=== PATIENT | male | born 1945 | race Caucasian/White ===

== ENCOUNTER 2017-01-30 16:12 | Emergency (ER) | payer MEDICARE, OTHER ==
--- NOTE | 2017-01-30 16:16 | PDOC ---
Rapid Medical Evaluation Time Seen by Provider: 01/30/17 16:15 Medical Evaluation: Allergies Allergy/AdvReac Type Severity Reaction Status Date / Time No Known Allergies Allergy Verified 10/18/16 15:20 01/30/17 16:15 71 yo M presents c/o RUQ pain x2 days with heart burn. Denies cp, sob. 2015: Cholecystectomy
[2017-01-30 16:21] VITALS: BMI 23.6
[2017-01-30 16:54] LABS: BASOPHIL 0.5 % (0-2.0); EOSINOPHIL 1.1 % (0-4.5); MCH 28.3 pg (25.7-33.7); MCHC 32.9 g/dl (32.0-35.9); MEAN CELL VOLUME 86.1 fl (80-96); MEAN PLT VOLUME 9.2 fl (7.5-11.1); NEUTROPHILS 65.4 % (42.8-82.8); PLATELET COUNT 154 K/MM3 (134-434); RDW 14.4 % (11.9-15.9); WHITE BLOOD COUNT 9.1 K/mm3 (4.0-10.0)
[2017-01-30 17:25] LABS: ALBUMIN 4.1 g/dl (3.4-5.0); BILIRUBIN,DIRECT 0.1 mg/dL (0.0-0.2); BILIRUBIN,TOTAL 0.5 mg/dL (0.2-1.0); TOT PROT 6.8 g/dl (6.4-8.2)
[2017-01-30] MEDS ORDERED: PANTOPRAZOLE SODIUM 40 MG in SODIUM CHLORIDE 100 ML IVPB ONE (18:01)
--- NOTE | 2017-01-30 18:01 | PDOC ---
History of Present Illness - History of Present Illness Initial Comments: 01/30/17 18:16 The patient is a 71 year old male with significant past medical history of hypertension and cholecystectomy in 2015 who presents to the emergency department with abdominal pain for 1 week. The patient states his pain is localized to the RUQ and radiates to his chest at times. The pain has been constant and is described as a bloating sensation. He reports some black stool in the past. He has never seen a GI specialist but states he has been told that he has liver problems. The patient currently denies any associated nausea, vomiting, diarrhea. He denies any chest pain, shortness of breath, palpitations. The patient denies recent illness, fevers, or chills. He denies sick contacts and recent travels. <Jo-Ann Shin - Last Filed: 01/30/17 18:28> - General History Source: Patient Exam Limitations: No Limitations <Shahnaz Velez - Last Filed: 02/01/17 18:53> - General Chief Complaint: Pain Stated Complaint: PAIN Time Seen by Provider: 01/30/17 16:15 Past History <Jo-Ann Shin - Last Filed: 01/30/17 18:28> - Past Medical History Cardiac Disorders: Yes HTN: Yes Hypercholesterolemia: Yes - Surgical History Cholecystectomy: Yes - Immunization History Immunization Up to Date: Yes - Psycho/Social/Smoking Cessation Hx Anxiety: No Suicidal Ideation: No Smoking History: Never smoked Have you smoked in the past 12 months: No Information on smoking cessation initiated: No Hx Alcohol Use: No Drug/Substance Use Hx: No Substance Use Type: None <Shahnaz Velez - Last Filed: 02/01/17 18:53> - Past Medical History Allergies/Adverse Reactions: Allergies Allergy/AdvReac Type Severity Reaction Status Date / Time No Known Allergies Allergy Verified 01/30/17 16:17 Home Medications: Ambulatory Orders Carvedilol [Coreg -] 25 mg PO BID 10/18/16 Losartan Potassium [Cozaar] 25 mg PO BID 10/18/16 Review of Systems - Review of Systems Able to Perform ROS?: Yes Comments:: 01/30/17 18:16 GENERAL/CONSTITUTIONAL: No: fever, chills, weakness, loss of appetite. HEAD, EYES, EARS, NOSE AND THROAT: No: change in vision, ear pain, discharge, sore throat, throat swelling. CARDIOVASCULAR: No: chest pain, lightheadedness, palpitations, syncope RESPIRATORY: No: cough, shortness of breath, wheezing, hemoptysis, stridor. GASTROINTESTINAL: +RUQ pain. No: nausea, vomiting, abdominal cramping, diarrhea , rectal bleeding, constipation. GENITOURINARY: No: dysuria, hematuria, frequency, urgency, flank pain. MUSCULOSKELETAL: No: back pain, neck pain, joint pain, muscle swelling or pain SKIN AND BREASTS: No: lesions, pallor, rash or easy bruising. NEUROLOGIC: No: headache, vertigo, paresthesias, weakness ENDOCRINE: No: unexplained weight gain or loss HEMATOLOGIC/LYMPHATIC: No: anemia, easy bleeding, swelling nodes <Jo-Ann Shin - Last Filed: 01/30/17 18:28> *Physical Exam - Vital Signs Last Vital Signs Temp Pulse Resp BP Pulse Ox 98 F 75 18 133/74 98 01/30/17 16:13 01/30/17 16:13 01/30/17 16:13 01/30/17 16:13 01/30/17 16:13 - Physical Exam Comments: 01/30/17 18:16 GENERAL: The patient is in no acute distress. HEAD: Normal with no signs of trauma. EYES: PERRLA, EOMI, sclera anicteric, conjunctiva clear. ENT: Ears normal, nares patent, oropharynx clear without exudates. Moist mucous membranes. NECK: Normal range of motion, supple without lymphadenopathy, JVD, or masses. LUNGS: Breath sounds equal, clear to auscultation bilaterally. No wheezes, and no crackles. HEART: Regular rate and rhythm, normal S1 and S2 without murmur, rub or gallop. ABDOMEN: +Tenderness to palpation in the RUQ, no guarding, no rebound. Soft, normoactive bowel sounds. EXTREMITIES: Normal range of motion, no edema. No clubbing or cyanosis. No erythema, or tenderness. NEUROLOGICAL: Cranial nerves II through XII grossly intact. Normal speech. No focal neurological deficits. MUSCULOSKELETAL: Back non-tender to palpation, no CVA tenderness SKIN: Warm, Dry, normal turgor, no rashes or lesions noted. <Jo-Ann Shin - Last Filed: 01/30/17 18:28> - Vital Signs Last Vital Signs Temp Pulse Resp BP Pulse Ox 98 F 75 18 133/74 98 01/30/17 16:13 01/30/17 16:13 01/30/17 16:13 01/30/17 16:13 01/30/17 16:13 <Shahnaz Velez - Last Filed: 02/01/17 18:53> ED Treatment Course - LABORATORY CBC & Chemistry Diagram: 01/30/17 16:25 01/30/17 16:25 - ADDITIONAL ORDERS Additional order review: Laboratory Results 01/30/17 01/30/17 16:25 16:25 Total Bilirubin 0.5 D Direct Bilirubin 0.1 AST 38 H D ALT 84 H D Alkaline Phosphatase 84 D Total Protein 6.8 Albumin 4.1 Total Amylase 72 Lipase 137 01/30/17 16:25 RBC 5.63 H MCV 86.1 MCHC 32.9 RDW 14.4 D MPV 9.2 Neutrophils % 65.4 Lymphocytes % 23.4 Monocytes % 9.6 Eosinophils % 1.1 Basophils % 0.5 <Jo-Ann Shin - Last Filed: 01/30/17 18:28> - LABORATORY CBC & Chemistry Diagram: 01/30/17 16:25 01/30/17 16:25 - ADDITIONAL ORDERS Additional order review: Laboratory Results 01/30/17 01/30/17 16:25 16:25 Total Bilirubin 0.5 D Direct Bilirubin 0.1 AST 38 H D ALT 84 H D Alkaline Phosphatase 84 D Total Protein 6.8 Albumin 4.1 Total Amylase 72 Lipase 137 01/30/17 16:25 RBC 5.63 H MCV 86.1 MCHC 32.9 RDW 14.4 D MPV 9.2 Neutrophils % 65.4 Lymphocytes % 23.4 Monocytes % 9.6 Eosinophils % 1.1 Basophils % 0.5 - RADIOLOGY Radiology Studies Ordered: Category Date Time Status ABDOMEN & PELVIS CT WITH CONTR [CT] Stat CT Scan 01/30/17 18:00 Ordered <Shahnaz Velez - Last Filed: 02/01/17 18:53> Medical Decision Making - Medical Decision Making 01/30/17 18:00 A portion of this note was documented by scribe services under my direction. I have reviewed the details of the note, within reason, and agree with the documentation with the following case summary and management plan written by me. Nursing documentation reviewed and incorporated into medical decision making 01/30/17 18:21 This is a 71-year-old male presented to emergency department with right-sided abdominal pain. Patient describes his pain is burning states is located in the right side of his abdomen and radiates up to the center of the abdomen and then up to the chest. No associated shortness of breath or chest pain. Patient denies nausea, vomiting, diarrhea. Patient denies any fevers chills No abdominal wall trauma. Pt s/p Cholecystectomy 2014 Patient states he is previously told he has "liver problems" which he describes as a fatty liver He states he has never been seen by a specialist On examination: Patient has right-sided abdominal pain. No distention, no rebound, no guarding. Will distended clots. Will do CT of the abdomen and pelvis with by mouth and IV contrast Laboratory Tests 01/30/17 01/30/17 01/30/17 16:25 16:25 16:25 WBC 9.1 Hgb 15.9 Hct 48.5 Plt Count 154 AST 38 H D ALT 84 H D Total Amylase 72 Lipase 137 Pt signed out to Dr Patel pending CT <Shahnaz Velez - Last Filed: 02/01/17 18:53> *DC/Admit/Observation/Transfer - Attestations Scribe Attestion: 01/30/17 18:28 Documentation prepared by Jo-Ann Shin, acting as medical observer for Shahnaz Velez MD. <Jo-Ann Shin - Last Filed: 01/30/17 18:28> - Discharge Dispostion Admit: No <Shahnaz Velez - Last Filed: 02/01/17 18:53> Diagnosis at time of Disposition: Constipation Abdominal pain Qualifiers: Abdominal location: right upper quadrant Qualified Code(s): R10.11 - Right upper quadrant pain - Discharge Dispostion Disposition: HOME Condition at time of disposition: Stable - Referrals Referrals: Mayra Veliz [Primary Care Provider] - Arjun Rios MD [Staff Physician] - - Patient Instructions Printed Discharge Instructions: DI for Abdominal Pain-Adult Additional Instructions: Arjun Thank you for coming in to the ER Please Follow up with your primary care physician AND Dr Rios Return to the ER for any other concerns or complaints Purchase Miralax. Use as needed for positive results. Don't use daily. Print Language: BAHRAINI
[2017-01-30] MEDS ORDERED: PANTOPRAZOLE SODIUM 100 ML IVPB ONE (18:20)
[2017-01-30 18:21] LABS: CREATININE 0.7 mg/dL (0.7-1.3)
[2017-01-30 19:53] VITALS: BP 141/93; PULSE 68; TEMP 98.5
[2017-01-30] MEDS ORDERED: LACTULOSE 20 GM/30 ML UDC (FOR ORAL USE ONLY) PO ONE (22:08)
--- NOTE | 2017-01-30 22:08 | PDOC ---
*Physical Exam - Vital Signs Last Vital Signs Temp Pulse Resp BP Pulse Ox 98.5 F 68 18 141/93 96 01/30/17 19:52 01/30/17 19:52 01/30/17 19:52 01/30/17 19:52 01/30/17 19:52 ED Treatment Course - LABORATORY CBC & Chemistry Diagram: 01/30/17 16:25 01/30/17 16:25 - ADDITIONAL ORDERS Additional order review: Laboratory Results 01/30/17 01/30/17 01/30/17 19:10 16:25 16:25 Sodium 140 Potassium 4.6 Chloride 100 Carbon Dioxide 33 H Anion Gap 7 L BUN 9 D Creatinine 0.7 Random Glucose 105 Calcium 9.0 Total Bilirubin Direct Bilirubin AST ALT Alkaline Phosphatase Total Protein Albumin Total Amylase Lipase 137 Stool Occult Blood Negative 01/30/17 16:25 Sodium Potassium Chloride Carbon Dioxide Anion Gap BUN Creatinine Random Glucose Calcium Total Bilirubin 0.5 D Direct Bilirubin 0.1 AST 38 H D ALT 84 H D Alkaline Phosphatase 84 D Total Protein 6.8 Albumin 4.1 Total Amylase 72 Lipase Stool Occult Blood 01/30/17 16:25 RBC 5.63 H MCV 86.1 MCHC 32.9 RDW 14.4 D MPV 9.2 Neutrophils % 65.4 Lymphocytes % 23.4 Monocytes % 9.6 Eosinophils % 1.1 Basophils % 0.5 - Medications Given in the ED: ED Medications Discontinued Medications Generic Name Dose Route Start Last Admin Trade Name Freq PRN Reason Stop Dose Admin Pantoprazole Sodium 40 mg/ 100 mls @ 200 mls/hr 01/30/17 18:01 01/30/17 18:31 Sodium Chloride IVPB 01/30/17 18:30 200 mls/hr ONCE ONE Administration *DC/Admit/Observation/Transfer Diagnosis at time of Disposition: Abdominal pain Qualifiers: Abdominal location: right upper quadrant Qualified Code(s): R10.11 - Right upper quadrant pain Constipation Qualifiers: Constipation type: other constipation type Qualified Code(s): K59.09 - Other constipation - Discharge Dispostion Condition at time of disposition: Stable Admit: No - Referrals Referrals: Arjun Rios MD [Staff Physician] - Mayra Veliz [Primary Care Provider] - - Patient Instructions Printed Discharge Instructions: DI for Abdominal Pain-Adult Additional Instructions: Arjun Thank you for coming in to the ER Please Follow up with your primary care physician AND Dr Rios Return to the ER for any other concerns or complaints Purchase Miralax. Use as needed for positive results. Don't use daily. Print Language: [place] - Post Discharge Activity
[2017-01-30] MEDS ORDERED: LACTULOSE 20 GM/30 ML UDC (FOR ORAL USE ONLY) ONE (22:13)
== END 2017-01-30 22:19 | disposition home or self-care (01) ==
LOC: JER 16:12
PROC: 3E033GC Introduction of Other Therapeutic Substance into Peripheral Vein, Percutaneous Approach (ICD-10-PCS; principal; 2017-01-30)
DX: R10.11 Right upper quadrant pain (principal); I10 Essential (primary) hypertension; E78.5 Hyperlipidemia, unspecified
CPT/HCPCS: 36415; 74177-TC; 80048; 80076; 82150; 82272; 83690; 85025; 99283-25; Q9967

== ENCOUNTER 2017-05-18 08:28 | Emergency (ER) | payer MEDICARE ==
[2017-05-18 08:31] VITALS: BP 126/71; PULSE 70; TEMP 98.1; BMI 21.9
--- NOTE | 2017-05-18 09:14 | PDOC ---
History of Present Illness - General Chief Complaint: Sore Throat Stated Complaint: THROAT PAIN Time Seen by Provider: 05/18/17 08:40 History Source: Patient Exam Limitations: No Limitations - History of Present Illness Initial Comments: 05/18/17 10:25 Chief complaint: Right-sided throat discomfort with swallowing since last night after eating History of present illness: Patient is a 71-year-old male with a history of hypertension, hyperlipidemia, and benign prostatic hypertrophy here today complaining of right-sided throat discomfort with swallowing since last night after eating. Patient reports that this happens intermittently. Patient denies any difficulty swallowing or breathing. Patient ate tacos last night. Patient is not drooling. Patient does not have any fever denies being around anyone sick. Patient denies any recent travel. 05/18/17 13:49 05/18/17 13:50 Timing/Duration: intermittent Severity: mild Associated Symptoms: reports: other (or drooling or difficulty swallowing ). denies: shortness of breath Past History - Past Medical History Allergies/Adverse Reactions: Allergies Allergy/AdvReac Type Severity Reaction Status Date / Time No Known Allergies Allergy Verified 05/18/17 08:31 Home Medications: Ambulatory Orders Carvedilol [Coreg -] 25 mg PO BID 10/18/16 Losartan Potassium [Cozaar] 25 mg PO BID 10/18/16 Aspirin [ASA -] 81 mg PO DAILY 02/10/17 Tamsulosin HCl [Flomax] 0.4 mg PO DAILY 02/10/17 Mag Hydrox/Al Hydrox/Simeth [Mylanta Oral Suspension -] 30 ml PO Q6H PRN #0 Pantoprazole Sodium [Protonix -] 40 mg PO DAILY #14 tab 02/12/17 Rosuvastatin Calcium [Crestor] 10 mg PO DAILY #30 tablet 02/12/17 Cardiac Disorders: Yes HTN: Yes Hypercholesterolemia: Yes - Surgical History Cholecystectomy: Yes - Immunization History Immunization Up to Date: Yes - Psycho/Social/Smoking Cessation Hx Anxiety: No Suicidal Ideation: No Smoking History: Never smoked Have you smoked in the past 12 months: No Number of Cigarettes Smoked Daily: 0 Hx Alcohol Use: No Drug/Substance Use Hx: No Substance Use Type: None Review of Systems - Review of Systems Able to Perform ROS?: Yes Constitutional: No: Symptoms Reported HEENTM: Yes: Throat Pain (right sided ), Other (no drooling). No: Difficulty Swallowing Respiratory: No: Symptoms reported Cardiac (ROS): No: Symptoms Reported ABD/GI: No: Symptoms Reported Musculoskeletal: No: Symptoms Reported Integumentary: No: Symptoms Reported Neurological: No: Symptoms reported *Physical Exam - Vital Signs Last Vital Signs Temp Pulse Resp BP Pulse Ox 98.1 F 70 18 126/71 98 05/18/17 08:29 05/18/17 08:29 05/18/17 08:29 05/18/17 08:29 05/18/17 08:29 - Physical Exam General Appearance: Yes: Appropriately Dressed HEENT: positive: TMs Normal. negative: Pharyngeal Erythema, Tonsillar Exudate, Tonsillar Erythema, Nasal Congestion, Rhinorrhea, Sinus Tenderness, TM Bulging, TM Dull, TM Erythema, Excessive drooling Neck: negative: Tender, Decreased range of motion, Lymphadenopathy (R), Lymphadenopathy (L), Rigidity, Tender lateral, Tender midline, Thyromegaly Respiratory/Chest: positive: Lungs Clear, Normal Breath Sounds. negative: Chest Tender, Respiratory Distress Cardiovascular: positive: Regular Rhythm, Regular Rate, S1, S2 Integumentary: positive: Normal Color Neurologic: positive: Alert, Normal Response, Responsive ED Treatment Course - RADIOLOGY Radiology Studies Ordered: Category Date Time Status NECK SOFT TISSUE [RAD] Stat Radiology 05/18/17 09:11 Ordered Medical Decision Making - Medical Decision Making 05/18/17 10:27 Patient is a 71-year-old male with a history of hypertension, hyperlipidemia, and benign prostatic hypertrophy here today complaining of right-sided throat discomfort with swallowing since last night after eating. Patient reports that this happens intermittently. Patient denies any difficulty swallowing or breathing. Patient ate tacos last night. Patient is not drooling. Patient does not have any fever denies being around anyone sick. Patient denies any recent travel. R/o soft tissue abnormality throat PLAN: xray soft tissue throat follow up with ENT as soon as possible 05/18/17 13:50 05/18/17 13:50 *DC/Admit/Observation/Transfer Diagnosis at time of Disposition: Throat discomfort - Discharge Dispostion Disposition: HOME Condition at time of disposition: Stable - Referrals Referrals: Mayra Veliz [Primary Care Provider] - - Patient Instructions Additional Instructions: Return to emergency room if symptoms worsen any difficulty swallowing or breathing Follow up with ears, nose and throat Dr. River as soon as possible\ Avoid eating any crunchy foods patient voiced understanding of discharge instructions and all questions were answered Volver a la catalina de emergencias si los sntomas empeoran cualquier dificultad para tragar o respirar Seguimiento con las orejas, nariz y garganta Dr. River nathan pronto vania sea posible \ Evite comer cualquier comida crujiente El paciente expres la comprensin de las instrucciones de genie y todas las preguntas fueron contestadas
== END 2017-05-18 11:10 | disposition home or self-care (01) ==
LOC: JERFT 08:28
DX: R07.0 Pain in throat (principal); R13.19 Other dysphagia; I10 Essential (primary) hypertension; E78.00 Pure hypercholesterolemia, unspecified; N40.0 Benign prostatic hyperplasia without lower urinary tract symptoms
CPT/HCPCS: 70360-TC; 99281-25

== ENCOUNTER 2017-06-13 09:43 | Emergency (ER) | payer MEDICARE ==
[2017-06-13 09:47] VITALS: BMI 22.4
[2017-06-13] MEDS ORDERED: ACETAMINOPHEN/CAFFEINE/BUTALBITAL 1 TAB PO ONE (10:34)
--- NOTE | 2017-06-13 10:35 | PDOC ---
History of Present Illness - History of Present Illness Initial Comments: 06/13/17 10:54 The patient is a 72 year old male, new zealander speaking, with a significant past medical history of hypertension (25 mg, reduced from 50 mg), hyperlipidemia, enlarged prostate (on Flomax), who presents to the emergency department with intermittent dizziness for a month with new onset of right sided headache which radiates to his occipital region since yesterday. The patient denies dizziness at this time, however, he states he has been experiencing an intermittent, diffuse tightness to his head which he reports his associated with feeling hot all over. He states the headache is a 5/10 right at its worst. He reports taking tylenol this morning with slight alleviation of his headache. He also states that pressing on the right side of his head alleviates his headache. Secondarily, the patient adds he has gas and admits to frequently eating beans. He reports having an appointment with his PCP on Saturday. He denies chest pain, shortness of breath. He denies fever, chills, nausea, vomit, diarrhea and constipation. He denies dysuria, frequency, urgency and hematuria. Allergies: NKDA PCP - Dr. Chaim Gama <Mary Ann Vaughn - Last Filed: 06/13/17 11:33> <Shahnaz Velez - Last Filed: 06/14/17 19:23> - General Chief Complaint: Headache Stated Complaint: HEADACHE, BACK PAIN Time Seen by Provider: 06/13/17 09:50 Past History <Mary Ann Vaughn - Last Filed: 06/13/17 11:33> - Past Medical History Cardiac Disorders: Yes HTN: Yes Hypercholesterolemia: Yes - Surgical History Abdominal Surgery: Yes Cholecystectomy: Yes - Immunization History Immunization Up to Date: Yes - Psycho/Social/Smoking Cessation Hx Anxiety: No Suicidal Ideation: No Smoking History: Never smoked Have you smoked in the past 12 months: No Number of Cigarettes Smoked Daily: 0 Hx Alcohol Use: No Drug/Substance Use Hx: No Substance Use Type: None <Shahnaz Velez - Last Filed: 06/14/17 19:23> - Past Medical History Allergies/Adverse Reactions: Allergies Allergy/AdvReac Type Severity Reaction Status Date / Time No Known Allergies Allergy Verified 06/13/17 09:45 Home Medications: Ambulatory Orders Carvedilol [Coreg -] 25 mg PO BID 10/18/16 Losartan Potassium [Cozaar] 25 mg PO BID 10/18/16 Aspirin [ASA -] 81 mg PO DAILY 02/10/17 Tamsulosin HCl [Flomax] 0.4 mg PO DAILY 02/10/17 Mag Hydrox/Al Hydrox/Simeth [Mylanta Oral Suspension -] 30 ml PO Q6H PRN #0 Pantoprazole Sodium [Protonix -] 40 mg PO DAILY #14 tab 02/12/17 Rosuvastatin Calcium [Crestor] 10 mg PO DAILY #30 tablet 02/12/17 Lidocaine 5% Patch [Lidoderm Patch -] 1 patch TP DAILY PRN #30 patch 06/13/17 Review of Systems - Review of Systems Able to Perform ROS?: Yes Comments:: 06/13/17 10:54 CONSTITUTIONAL: Absent: fever, no chills, no fatigue EYES: Absent: visual changes ENT: Absent: ear pain, no sore throat CARDIOVASCULAR: Absent: chest pain, no palpitations RESPIRATORY: Absent: cough, no SOB GASTROINTESTINAL: Absent: abdominal pain, no nausea, no vomiting, no constipation, no diarrhea GENITOURINARY: Absent: dysuria, no frequency, no hematuria MUSCULOSKELETAL: Absent: back pain, no arthralgia, no myalgia SKIN: Absent: rash NEURO: (+) right sided headache <Mary Ann Vaughn - Last Filed: 06/13/17 11:33> *Physical Exam - Vital Signs Last Vital Signs Temp Pulse Resp BP Pulse Ox 98.1 F 88 18 145/86 98 06/13/17 09:44 06/13/17 09:44 06/13/17 09:44 06/13/17 09:44 06/13/17 09:44 - Physical Exam Comments: 06/13/17 10:55 GENERAL: The patient is in no acute distress. HEAD: Normal with no signs of trauma. EYES: PERRLA, EOMI, sclera anicteric, conjunctiva clear. ENT: Ears normal, nares patent, oropharynx clear without exudates. Moist mucous membranes. NECK: Normal range of motion, supple without lymphadenopathy, JVD, or masses. LUNGS: Breath sounds equal, clear to auscultation bilaterally. No wheezes, and no crackles. HEART:Regular rate and rhythm, normal S1 and S2 without murmur, rub or gallop. ABDOMEN: Soft, nontender, normoactive bowel sounds. No guarding, no rebound. No masses palpable. EXTREMITIES: Normal range of motion, no edema. No clubbing or cyanosis. No erythema, or tenderness. NEUROLOGICAL: Cranial nerves II through XII grossly intact. Normal speech. No focal neurological deficits. MUSCULOSKELETAL: Back non-tender to palpation, no CVA tenderness SKIN: Warm, Dry, normal turgor, no rashes or lesions noted. <Mary Ann Vaughn - Last Filed: 06/13/17 11:33> - Vital Signs Last Vital Signs Temp Pulse Resp BP Pulse Ox 98.1 F 88 18 145/86 98 06/13/17 09:44 06/13/17 09:44 06/13/17 09:44 06/13/17 09:44 06/13/17 09:44 <Shahnaz Velez - Last Filed: 06/14/17 19:23> ED Treatment Course - RADIOLOGY Radiograph Interpretation: 06/13/17 11:33 EXAM#: TYPE/EXAM: RESULT: [id number] CT/HEAD CT WITHOUT CONTRAST Right side pain CT scan of the brain without intravenous contrast. No prior is available for comparison. There is mild volume loss and ventricular dilatation. No mass lesion, focal acute infarct or intracranial hemorrhage is identified. There is no shift of the midline structures. The craniocervical junction appears unremarkable. Visualized paranasal sinuses and mastoid air cells are well aerated. The calvarium is intact. IMPRESSION: Mild volume loss and ventricular dilatation without evidence of acute intracranial pathology. Correlate clinically to determine further evaluation and follow-up. Reported By: Darcie Booth MD 06/13/17 1122 - Medications Given in the ED: ED Medications Discontinued Medications Generic Name Dose Route Start Last Admin Trade Name Freq PRN Reason Stop Dose Admin Acetaminophen/Butalbital/Caffeine 1 tablet 06/13/17 10:34 06/13/17 10:51 Fioricet - PO 06/13/17 10:35 1 tablet ONCE ONE Administration <Mary Ann Vaughn - Last Filed: 06/13/17 11:33> Medical Decision Making - Medical Decision Making A portion of this note was documented by scribe services under my direction. I have reviewed the details of the note, within reason, and agree with the documentation with the following case summary and management plan written by me. Nursing documentation reviewed and incorporated into medical decision making 06/13/17 10:48 This is a 72 yo M with a history of HTN, HLD, cardiac disease. Plan of headache. Patient states 2 years ago he had a fall, with head trauma. Since that time the patient has had intermittent tension-type headaches. Today he presents with a complaint of right-sided headache which radiates from the front of his head to the occipital region. No additional head trauma. No vision changes. No nausea, vomiting. No fevers or chills Patient states that yesterday when he had this headache he bumped his head and it improved. Today he again had this headache and took Tylenol which also improved his headache. At its worse headache is 5/10 Patient's has not seen his primary care physician although has an appointment in 4 days. Will do: Head CT give fiorecet for headache Will re assess 06/13/17 11:29 CT head negative for acute pathology will discharge to home Pt states he feels better I discussed the physical exam findings, ancillary test results and final diagnoses with the patient. I answered all of the patient's questions. The patient was satisfied with the care received and felt comfortable with the discharge plan and treatment plan. The patient will call their primary care physician within 24 hours to arrange follow-up and will return to the Emergency Department with any new, persistent or worsening symptoms. <Shahnaz Velez - Last Filed: 06/14/17 19:23> *DC/Admit/Observation/Transfer - Attestations Scribe Attestion: 06/13/17 10:56 Documentation prepared by Mary Ann Vaughn, acting as medical psychotherapist for Shahnaz Velez MD <Mary Ann Vaughn - Last Filed: 06/13/17 11:33> - Discharge Dispostion Admit: No <Shahnaz Velez - Last Filed: 06/14/17 19:23> Diagnosis at time of Disposition: Headache Qualifiers: Headache type: tension-type Headache chronicity pattern: episodic headache Intractability: not intractable Qualified Code(s): G44.219 - Episodic tension- type headache, not intractable - Discharge Dispostion Disposition: HOME Condition at time of disposition: Stable - Prescriptions Prescriptions: Lidocaine 5% Patch [Lidoderm Patch -] 1 patch TP DAILY PRN #30 patch PRN Reason: Pain - Referrals Referrals: Christine Gama MD [Primary Care Provider] - Jeevan Mcdermott MD [Staff Physician] - - Patient Instructions Printed Discharge Instructions: DI for Headache Additional Instructions: Talia por venir hoy al ER Lease seguimiento con manning mdico de atencin primaria vania ya est programado para el Por favor tome tylenol para manning dolor de shahla Si usted tiene un dolor de shahla ms deb, usted puede radha EXCEDRIN MIGRAINE Por favor regrese a la catalina de emergencias para cualquier otra preocupacin o queja Tambin puede intentar radha GAS X para manning gas Thank you for coming in to the ER today lease follow up with your primary care physician as is already scheduled for Saturday Please take tylenol for your headache If you have a more severe headache, you can take Excedrin Migraine Please return to the ER for any other concerns or complaints Also you can try taking Gas x for your gas Print Language: YORUBA
[2017-06-13] MEDS ORDERED: ACETAMINOPHEN/CAFFEINE/BUTALBITAL 1 TAB ONE (10:45)
[2017-06-13 11:44] VITALS: BP 140/90; PULSE 81; TEMP 98
== END 2017-06-13 11:47 | disposition home or self-care (01) ==
LOC: JER 09:43 → SUPCPDRO 09:43 → JER 11:47
DX: G44.219 Episodic tension-type headache, not intractable (principal); I10 Essential (primary) hypertension; E78.00 Pure hypercholesterolemia, unspecified; N40.0 Benign prostatic hyperplasia without lower urinary tract symptoms
CPT/HCPCS: 70450-TC; 99282-25

== ENCOUNTER 2018-02-26 16:43 | Observation (INO) | payer MEDICARE, OTHER ==
--- NOTE | 2018-02-26 16:59 | PDOC ---
Rapid Medical Evaluation Chief Complaint: Chest Pain Time Seen by Provider: 02/26/18 16:58 Medical Evaluation: Allergies Allergy/AdvReac Type Severity Reaction Status Date / Time No Known Allergies Allergy Verified 06/13/17 09:45 02/26/18 16:58 I have performed a brief in-person evaluation of this patient. The patient presents with a chief complaint of:chest pressure x several days. H/ o HTN, HLD, BPH Pertinent physical exam findings:stable w/ unremarkable exam I have ordered the following:labs/ekg/cxr The patient will proceed to the ED for further evaluation. Discharge Disposition - Diagnosis Chest pain Qualifiers: Chest pain type: unspecified Qualified Code(s): R07.9 - Chest pain, unspecified - Referrals - Patient Instructions - Post Discharge Activity
[2018-02-26 17:00] VITALS: BMI 21.9
[2018-02-26 17:24] LABS: BASO % 0.5 % (0-2.0); EOS % 1.5 % (0-4.5); HEMATOCRIT 43.1 % (35.4-49); HEMOGLOBIN 14.3 GM/dL (11.7-16.9); LYMPH % 27.2 % (8-40); MCH 28.3 pg (25.7-33.7); MCHC 33.1 g/dl (32.0-35.9); MEAN CELL VOLUME 85.4 fl (80-96); MEAN PLT VOLUME 9.1 fl (7.5-11.1); MONO % 11.4 % (3.8-10.2); NEUT % 59.4 % (42.8-82.8); PLATELET COUNT 152 K/MM3 (134-434); RBC 5.04 M/mm3 (4.00-5.60); RDW 15.2 % (11.9-15.9); WHITE BLOOD COUNT 7.2 K/mm3 (4.0-10.0)
--- NOTE | 2018-02-26 17:47 | PDOC ---
Attending Attestation - HPI HPI: 02/26/18 19:33 The patient is a 72 year old male, with a significant past medical history of CHF, HTN, HLD and GERD, who presents to the emergency department complaining of chest pain for the past 3 days. He describes his chest pain as ranging from mild to moderate, without radiation or modifying factors. No identifiable triggers or alleviators. Also endorses a pressure sensation in his throat. He notes that he has had nuclear stress tests in the past, most recent being 2 years ago. The patient denies shortness of breath, headache or dizziness. Denies fever, chills, nausea, vomiting, diarrhea and constipation. Allergies: None Past surgical history: None reported Social History: No alcohol, tobacco or drug use reported - Physicial Exam PE: 02/26/18 19:36 GENERAL: Awake, alert, and fully oriented, in no acute distress HEAD: No signs of trauma, normocephalic, atraumatic EYES: PERRLA, EOMI, sclera anicteric, conjunctiva clear ENT: Auricles normal inspection, hearing grossly normal, nares patent, oropharynx clear without exudates. Moist mucosa NECK: Normal ROM, supple, no lymphadenopathy, JVD, or masses LUNGS: No distress, speaks full sentences, clear to auscultation bilaterally HEART: Regular rate and rhythm, normal S1 and S2, no murmurs, rubs or gallops, peripheral pulses normal and equal bilaterally. ABDOMEN: Soft, nontender, normoactive bowel sounds. No guarding, no rebound. No masses EXTREMITIES : Normal inspection, Normal range of motion, no edema. No clubbing or cyanosis. NEUROLOGICAL: Cranial nerves II through XII grossly intact. Normal speech, normal gait, no focal sensorimotor deficits SKIN: Warm, Dry, normal turgor, no rashes or lesions noted <Tommy Ortiz - Last Filed: 02/26/18 19:33> - Resident Resident Name: Onofre Goncalves - ED Attending Attestation I have performed the following: I have examined & evaluated the patient, The case was reviewed & discussed with the resident, I agree w/resident's findings & plan, Exceptions are as noted - Medical Decision Making 02/26/18 17:47 I, Dr. Yany Kahn, DO, attest that this document has been prepared under my direction and personally reviewed by me in its entirety. I further attest, that it accurately reflects all work, treatment, procedures and medical decision -making performed by me. 02/26/18 19:45 a/p: 72yo male with cp that radiates to his neck and RUQ pain -feels a fullness sensation to neck -no pain at this time -cp comes and goes -no n/v/d -sometimes burning sensation -will check labs, ekg, trop, ruq u/s, cxr -will monitor and reassess 02/26/18 21:45 pt with heart score of 5 will keep for obs and ACS work up discussed with the patient - agreeable to stay for [facility] was supposed to have an echo yesterday - but forgot about the appt discussed with Sailaja from [facility] - accept pt to service under Dr. Avitia <Yany Kahn - Last Filed: 02/26/18 21:51> Discharge Disposition <Tommy Ortiz - Last Filed: 02/26/18 19:33> - Discharge Dispostion Admit: Yes <Yany Kahn - Last Filed: 02/26/18 21:51> - Diagnosis Abdominal pain Chest pain Qualifiers: Chest pain type: unspecified Qualified Code(s): R07.9 - Chest pain, unspecified - Discharge Dispostion Condition at time of disposition: Fair - Referrals Referrals: Mayra Veliz [Primary Care Provider] - - Patient Instructions - Post Discharge Activity Heart Score/ECG Review - ECG Intrepretation Comment:: 02/26/18 21:50 sinus dionisio at 59, LBBB, no changes from prior, no acute st/t wave findings <Yany Kahn - Last Filed: 02/26/18 21:51>
[2018-02-26 17:51] LABS: ANION GAP 3 (8-16); BILIRUBIN,TOTAL 0.4 mg/dL (0.2-1.0); BLOOD UREA NITROGEN 10 mg/dL (7-18); CALCIUM 8.7 mg/dL (8.5-10.1); CHLORIDE 104 mmol/L (98-107); CO2 32 mmol/L (21-32); CREATININE 0.7 mg/dL (0.7-1.3); GLUCOSE,RANDOM 92 mg/dL (74-106); POTASSIUM 4.5 mmol/L (3.5-5.1); SGOT/AST 19 U/L (15-37); SGPT/ALT 34 U/L (12-78); SODIUM 139 mmol/L (136-145)
[2018-02-26 17:54] LABS: ALK PHOS 86 U/L (45-117)
--- NOTE | 2018-02-26 18:55 | PDOC ---
History of Present Illness - General Chief Complaint: Chest Pain Stated Complaint: CHEST PAIN Time Seen by Provider: 02/26/18 16:58 - History of Present Illness Initial Comments: 02/26/18 18:49 72 yo M with h/o HTN, HLD, and GERD who p/w chest pain. Patient reports episodic , retrosternal chest pressure over the past 3 days. No identifiable triggers or alleviators. No asx. diaphoresis, hemoptysis, cough, wheezing, palpitations, radiation, weakness, sensory changes. Also endorses globus sensation in throat with no identifiable triggers or alleviators. Denies N/V, F/ C, dysphagia, postprandial pain, constipation, diarrhea, BPR, lightheadedness, weakness, sensory changes. Reports h/o normal endoscopy. Denies h/o CAD/PR, stent placement, CABG, or abnormal stress test. Does not recall results from most recent stress test 2 years ago. Denies tobacco use. Past History - Past Medical History Allergies/Adverse Reactions: Allergies Allergy/AdvReac Type Severity Reaction Status Date / Time No Known Allergies Allergy Verified 02/26/18 17:00 Home Medications: Ambulatory Orders Carvedilol [Coreg -] 25 mg PO BID 10/18/16 Losartan Potassium [Cozaar] 25 mg PO BID 10/18/16 Aspirin [ASA -] 81 mg PO DAILY 02/10/17 Tamsulosin HCl [Flomax] 0.4 mg PO DAILY 02/10/17 Mag Hydrox/Al Hydrox/Simeth [Mylanta Oral Suspension -] 30 ml PO Q6H PRN #0 Pantoprazole Sodium [Protonix -] 40 mg PO DAILY #14 tab 02/12/17 Rosuvastatin Calcium [Crestor] 10 mg PO DAILY #30 tablet 02/12/17 Lidocaine 5% Patch [Lidoderm Patch -] 1 patch TP DAILY PRN #30 patch 06/13/17 Cardiac Disorders: Yes COPD: No HTN: Yes Hypercholesterolemia: Yes - Surgical History Abdominal Surgery: Yes Cholecystectomy: Yes - Immunization History Immunization Up to Date: Yes - Suicide/Smoking/Psychosocial Hx Smoking History: Never smoked Have you smoked in the past 12 months: No Number of Cigarettes Smoked Daily: 0 Information on smoking cessation initiated: No Hx Alcohol Use: No Drug/Substance Use Hx: No Substance Use Type: None Review of Systems - Review of Systems Comments:: 02/26/18 19:33 GENERAL/CONSTITUTIONAL: No fever or chills. No weakness. HEAD, EYES, EARS, NOSE AND THROAT: No change in vision. No ear pain or discharge. No sore throat. CARDIOVASCULAR: + Chest pain. No shortness of breath RESPIRATORY: No cough, wheezing, or hemoptysis. GASTROINTESTINAL: No nausea, vomiting, diarrhea or constipation. GENITOURINARY: No dysuria, frequency, or change in urination. MUSCULOSKELETAL: No joint or muscle swelling or pain. No neck or back pain. SKIN: No rash NEUROLOGIC: No headache, vertigo, loss of consciousness, or change in strength/ sensation. ENDOCRINE: No increased thirst. No abnormal weight change HEMATOLOGIC/LYMPHATIC: No anemia, easy bleeding, or history of blood clots. ALLERGIC/IMMUNOLOGIC: No hives or skin allergy. *Physical Exam - Vital Signs Last Vital Signs Temp Pulse Resp BP Pulse Ox 98.1 F 69 18 110/74 98 02/26/18 16:58 02/26/18 16:58 02/26/18 16:58 02/26/18 16:58 02/26/18 16:58 - Physical Exam Comments: 02/26/18 20:18 GENERAL: Awake, alert, and fully oriented, in no acute distress HEAD: No signs of trauma, normocephalic, atraumatic EYES: PERRLA, EOMI, sclera anicteric, conjunctiva clear ENT: Hearing grossly normal, nares patent, oropharynx clear without exudates. Moist mucosa NECK: Normal ROM, supple, no lymphadenopathy, JVD, or masses LUNGS: No distress, speaks full sentences, clear to auscultation bilaterally HEART: Regular rate and rhythm, normal S1 and S2, no murmurs, rubs or gallops, peripheral pulses normal and equal bilaterally. ABDOMEN: Soft, epigastric and RUQ ttp, normoactive bowel sounds. No guarding, no rebound. No masses. Neg CVA ttp. EXTREMITIES : Normal inspection, Normal range of motion, no edema. No clubbing or cyanosis. SKIN: Warm, Dry, normal turgor, no rashes or lesions noted ED Treatment Course - LABORATORY CBC & Chemistry Diagram: 02/26/18 17:10 02/26/18 17:10 - ADDITIONAL ORDERS Additional order review: Laboratory Results 02/26/18 02/26/1802/26/18 17:10 17:10 17:10 WBC 7.2 RBC 5.04 Hgb 14.3 Hct 43.1 MCV 85.4 MCH 28.3 MCHC 33.1 RDW 15.2 Plt Count 152 D MPV 9.1 Neutrophils % 59.4 Lymphocytes % 27.2 D Monocytes % 11.4 H Eosinophils % 1.5 Basophils % 0.5 Sodium 139 Potassium 4.5 Chloride 104 Carbon Dioxide 32 Anion Gap 3 L BUN 10 Creatinine 0.7 Creat Clearance w eGFR > 60 Random Glucose 92 Calcium 8.7 Total Bilirubin 0.4 AST 19 ALT 34 Alkaline Phosphatase 86 D Creatine Kinase 83 Troponin I < 0.02 B-Natriuretic Peptide 166.43 H Total Protein 7.0 Albumin 4.0 02/26/18 17:10 RBC 5.04 MCV 85.4 MCHC 33.1 RDW 15.2 MPV 9.1 Neutrophils % 59.4 Lymphocytes % 27.2 D Monocytes % 11.4 H Eosinophils % 1.5 Basophils % 0.5 - RADIOLOGY Radiology Studies Ordered: Category Date Time Status GALLBLADDER US [US] Stat Ultrasound 02/26/18 18:49 Ordered Medical Decision Making - Medical Decision Making 02/26/18 19:57 72 yo M with h/o HTN, HLD, and GERD who p/w episodic, retrosternal chest pressure over the past 3 days.+ Globus sensation in throat. Denies N/V, F/C, diaphoresis, hemoptysis, cough, wheezing, palpitations, radiation, weakness, sensory changes, dysphagia, postprandial pain, constipation, diarrhea, BPR, lightheadedness, weakness, sensory changes. Denies h/o CAD/PR, stent placement , CABG, or abnormal stress test. HDS. Physical exam with epigastric and RUQ ttp. Will evaluate for ACS/PR, PNA. Low suspicion of aortic dissection. Absent neuro deficits, and patient currently hemodynamically stable. Low risk PE based on Weils criteria. Differential also includes esophagitis, gastritis, cholelithiasis. 02/26/18 20:00 ED Course: CBC, CMP, Cardiac RUQ U/S, CXR Maloox, ASA 02/26/18 20:05 02/26/18 20:05 CBC, CMP: Unremarkable BNP: 163 Trop: Neg 02/26/18 20:22 EKG: LBBB, sinus bradycardia. Normal interval duration. Absent acute ST segment changes. Similar to prior interval study (02/10/17) *DC/Admit/Observation/Transfer Diagnosis at time of Disposition: Chest pain Qualifiers: Chest pain type: unspecified Qualified Code(s): R07.9 - Chest pain, unspecified - Referrals Referrals: Mayra Veliz [Primary Care Provider] - - Patient Instructions - Post Discharge Activity
[2018-02-26] MEDS ORDERED: ASPIRIN 81 MG CHEWABLE TABLETS PO ONE (19:35)
[2018-02-26] MEDS ORDERED: MAG HYDROX/AL HYDROX/SIMETH -MYLANTA- ORAL SUSPENSION PO ONE (19:35)
[2018-02-26] MEDS ORDERED: ASPIRIN 81 MG CHEWABLE TABLETS ONE (19:51)
[2018-02-26] MEDS ORDERED: MAG HYDROX/AL HYDROX/SIMETH 30 ML UNIT-DOSE CUP ONE (19:52)
--- NOTE | 2018-02-26 22:19 | HP ---
CHIEF COMPLAINT: chest pain PCP: [facility] HISTORY OF PRESENT ILLNESS: This is a 72 year old male with a past medical history significant for CHF, HTN , HLD, GERD who presented to the ED with a 3 day history of intermittent chest pain that radiates to his neck and throat. Upon exam pt is sitting up in chair eating dinner, no acute complaints. Pt tolerated dinner without issue. ER course was notable for: (1) trop neg x 1, BNP 166 (2) ECG with no acute findings, LBBB, old (3) Recent Travel: pt denies PAST MEDICAL HISTORY: CHF, HTN, HLD, GERD, BPH PAST SURGICAL HISTORY: Cholecystectomy Social History: Smoking: pt denies Alcohol: in past Drugs: pt denies Family History: father age 97, h/o prostate problems mother age 84, old age brother s/p CVA age 76 3 other siblings no medical problems Allergies No Known Allergies Allergy (Verified 02/26/18 17:00) HOME MEDICATIONS: 3 Medication Instructions Recorded Carvedilol [Coreg -] 25 mg PO BID 10/18/16 Losartan Potassium [Cozaar] 25 mg PO BID 10/18/16 Aspirin [ASA -] 81 mg PO DAILY 02/10/17 Tamsulosin HCl [Flomax] 0.4 mg PO DAILY 02/10/17 Mag Hydrox/Al Hydrox/Simeth 30 ml PO Q6H PRN #0 02/12/17 [Mylanta Oral Suspension -] Pantoprazole Sodium [Protonix -] 40 mg PO DAILY #14 tab 02/12/17 Rosuvastatin Calcium [Crestor] 10 mg PO DAILY #30 tablet 02/12/17 Lidocaine 5% Patch [Lidoderm Patch 1 patch TP DAILY PRN #30 patch 06/13/17 -] REVIEW OF SYSTEMS CONSTITUTIONAL: Absent: fever, chills, diaphoresis, generalized weakness, malaise, loss of appetite, weight change HEENT: Absent: rhinorrhea, nasal congestion, throat pain, throat swelling, difficulty swallowing, mouth swelling, ear pain, eye pain, visual changes CARDIOVASCULAR: Present: chest pain Absent: syncope, palpitations, irregular heart rate, lightheadedness, peripheral edema RESPIRATORY: Absent: cough, shortness of breath, dyspnea with exertion, orthopnea, wheezing, stridor, hemoptysis GASTROINTESTINAL: Absent: abdominal pain, abdominal distension, nausea, vomiting, diarrhea, constipation, melena, hematochezia GENITOURINARY: Absent: dysuria, frequency, urgency, hesitancy, hematuria, flank pain, genital pain MUSCULOSKELETAL: Absent: myalgia, arthralgia, joint swelling, back pain, neck pain SKIN: Absent: rash, itching, pallor HEMATOLOGIC/IMMUNOLOGIC: Absent: easy bleeding, easy bruising, lymphadenopathy, frequent infections ENDOCRINE: Absent: unexplained weight gain, unexplained weight loss, heat intolerance, cold intolerance NEUROLOGIC: Absent: headache, focal weakness or paresthesias, dizziness, unsteady gait, seizure, mental status changes, bladder or bowel incontinence PSYCHIATRIC: Absent: anxiety, depression, suicidal or homicidal ideation, hallucinations. PHYSICAL EXAMINATION Vital Signs - 24 hr 3 02/26/18 16:58 Temperature 98.1 F Pulse Rate 69 Respiratory 18 Rate Blood Pressure 110/74 O2 Sat by Pulse 98 Oximetry (%) GENERAL: Awake, alert, and fully oriented, in no acute distress. HEAD: Normal with no signs of trauma. EYES: Pupils equal, round and reactive to light, extraocular movements intact, sclera anicteric, conjunctiva clear. No lid lag. EARS, NOSE, THROAT: Ears normal, nares patent, oropharynx clear without exudates. Moist mucous membranes. NECK: Normal range of motion, supple without lymphadenopathy, JVD, or masses. LUNGS: Breath sounds equal, clear to auscultation bilaterally. No wheezes, and no crackles. No accessory muscle use. HEART: Regular rate and rhythm, normal S1 and S2 without murmur, rub or gallop. ABDOMEN: Soft, nontender, not distended, normoactive bowel sounds, no guarding, no rebound, no masses. No hepatomegaly or splenomegaly. MUSCULOSKELETAL: Normal range of motion at all joints. No bony deformities or tenderness. No CVA tenderness. UPPER EXTREMITIES: 2+ pulses, warm, well-perfused. No cyanosis. No clubbing. No peripheral edema. LOWER EXTREMITIES: 2+ pulses, warm, well-perfused. No calf tenderness. No peripheral edema. NEUROLOGICAL: Cranial nerves II-XII intact. Normal speech. Normal gait. PSYCHIATRIC: Cooperative. Good eye contact. Appropriate mood and affect. SKIN: Warm, dry, normal turgor, no rashes or lesions noted, normal capillary refill. Laboratory Results - last 24 hr 3 0302/26/18 02/26/18 17:10 17:10 17:10 WBC 7.2 RBC 5.04 Hgb 14.3 Hct 43.1 MCV 85.4 MCH 28.3 MCHC 33.1 RDW 15.2 Plt Count 152 D MPV 9.1 Neutrophils % 59.4 Lymphocytes % 27.2 D Monocytes % 11.4 H Eosinophils % 1.5 Basophils % 0.5 Sodium 139 Potassium 4.5 Chloride 104 Carbon Dioxide 32 Anion Gap 3 L BUN 10 Creatinine 0.7 Creat Clearance w eGFR > 60 Random Glucose 92 Calcium 8.7 Total Bilirubin 0.4 AST 19 ALT 34 Alkaline Phosphatase 86 D Creatine Kinase 83 Troponin I < 0.02 B-Natriuretic Peptide 166.43 H Total Protein 7.0 Albumin 4.0 ECG Sinus bradycardia vent rate 59, QTC 429 LBBB, unchanged from prior ECG Radiology Reports US abdomen, limited IMPRESSION: 1. Status post cholecystectomy. No evidence of intrahepatic or extrahepatic biliary ductal dilatation. 2. Pancreas obstructive by bowel gas and cannot be evaluated. 3. A 2.6 x 2.4 cm left hepatic lobe cyst. Reported By: Karma Colon DO 02/26/182033 CXR, portable IMPRESSION: No focal opacity to suggest pneumonia. No evidence of pulmonary vascular congestion or pleural effusion. Bilateral lower lung pulmonary nodular opacities measuring up to 1.1 cm, not definitely present on prior chest x-rays. Further evaluation with nonemergent outpatient noncontrast chest CT recommended. Reported By: Karma Colon DO 02/26/182037 ASSESSMENT/PLAN: 72yM with PMH, CHF, HTN, HLD, GERD, BPH presented to the ED with 3 day h/o intermittent chest pain with some throat pressure. Chest pain - heart score 5 - admit for observation - trend troponin - echo - cardiology consult CHF/HTN/HLD - cont home meds GERD - Cont protonix BPH - cont home flomax DVT PPX - heparin deferred as anticipated LOS <48h FEN - tolerating po - bmp in am - low sodium diet as tolerated Dispo: Pt to be admitted to observation status. Visit type - Emergency Visit Emergency Visit: Yes ED Registration Date: 02/26/18 Care time: The patient presented to the Emergency Department on the above date and was hospitalized for further evaluation of their emergent condition. - New Patient This patient is new to me today: Yes Date on this admission: 02/26/18 - Critical Care Critical Care patient: No Hospitalist Screening - Colonoscopy Questionnaire Colonoscopy Questionnaire: Colonoscopy Questionnaire - Patient: 50 - 75 years old and never had a screening colonoscopy: No History of colon or rectal polyps, or CA: No History of IBD, Crohn's disease or UC: No History of abdominal radiation therapy as a child: No - Relative: 1 with colon or rectal CA, or polyps at age 60 or younger: No Colon or rectal CA diagnosed at age 45 or younger: No Multiple relatives with colon or rectal CA: No - Outcome: Screening Result: Negative Screen
[2018-02-27] MEDS ORDERED: TAMSULOSIN HCL 0.4 MG CAP.ER.24H (FP) PO SCH (08:30)
[2018-02-27 08:42] LABS: BASO % 0.6 % (0-2.0); EOS % 1.9 % (0-4.5); HEMATOCRIT 41.5 % (35.4-49); HEMOGLOBIN 13.8 GM/dL (11.7-16.9); LYMPH % 26.5 % (8-40); MCH 28.4 pg (25.7-33.7); MCHC 33.2 g/dl (32.0-35.9); MEAN CELL VOLUME 85.5 fl (80-96); MEAN PLT VOLUME 9.2 fl (7.5-11.1); MONO % 10.5 % (3.8-10.2); NEUT % 60.5 % (42.8-82.8); PLATELET COUNT 138 K/MM3 (134-434); RBC 4.85 M/mm3 (4.00-5.60); RDW 14.8 % (11.9-15.9); WHITE BLOOD COUNT 6.9 K/mm3 (4.0-10.0)
[2018-02-27 09:10] LABS: ANION GAP 9 (8-16); BLOOD UREA NITROGEN 11 mg/dL (7-18); CALCIUM 8.8 mg/dL (8.5-10.1); CHLORIDE 103 mmol/L (98-107); CO2 29 mmol/L (21-32); CREATININE 0.6 mg/dL (0.7-1.3); GLUCOSE,RANDOM 95 mg/dL (74-106); MAGNESIUM 2.5 mg/dL (1.8-2.4); POTASSIUM 4.4 mmol/L (3.5-5.1); SODIUM 141 mmol/L (136-145)
[2018-02-27] MEDS ORDERED: CARVEDILOL 25 MG TABLET (FP) PO SCH (10:00)
[2018-02-27] MEDS ORDERED: PANTOPRAZOLE 40 MG TABLET (FP) PO SCH (10:00)
[2018-02-27] MEDS ORDERED: LOSARTAN POTASSIUM 25 MG TABLET PO SCH (10:00)
[2018-02-27] MEDS ORDERED: ASPIRIN 81 MG CHEWABLE TABLETS PO SCH (10:00)
[2018-02-27] MEDS ORDERED: ROSUVASTATIN CA 10 MG TABLET (FP) PO SCH (10:00)
--- NOTE | 2018-02-27 10:04 | PN ---
Progress Note, Physician Chief Complaint: Chest pain History of Present Illness: Review of chart and medical records, labs, CXR, EKG- likely 2/2 to acid reflux. No chest pain at this time. Cardiology to see pt to clear - Current Medication List Current Medications: Active Medications Aspirin (Asa -) 81 mg PO DAILY FLEX Carvedilol (Coreg -) 25 mg PO BID FLEX Losartan Potassium (Cozaar -) 25 mg PO BID FLEX Pantoprazole Sodium (Protonix -) 40 mg PO DAILY FLEX Rosuvastatin Calcium (Crestor -) 10 mg PO DAILY FLEX Tamsulosin HCl (Flomax -) 0.4 mg PO DAILY@0830 [facility] Last Admin: 02/27/18 08:42 Dose: 0.4 mg - Objective Vital Signs: Vital Signs Temperature 97.7 F 02/27/18 06:52 Pulse Rate 72 02/27/18 06:52 Respiratory Rate 14 02/27/18 06:52 Blood Pressure 120/78 02/27/18 06:52 O2 Sat by Pulse Oximetry (%) 98 02/27/18 06:52 Constitutional: Yes: Well Nourished, No Distress, Calm Labs: CBC, BMP 02/27/18 07:50 02/27/18 07:50 Problem List - Problems (1) Chest pain Assessment/Plan: -Trop negative -Cardiology consult Code(s): R07.9 - CHEST PAIN, UNSPECIFIED Qualifiers: Chest pain type: unspecified Qualified Code(s): R07.9 - Chest pain, unspecified Assessment/Plan see problem list
[2018-02-27 10:32] VITALS: BP 129/71; PULSE 73; TEMP 98.3
--- NOTE | 2018-02-27 11:37 | EKG ---
Test Reason : Blood Pressure : / mmHG Vent. Rate : 064 BPM Atrial Rate : 064 BPM P-R Int : 154 ms QRS Dur : 132 ms QT Int : 442 ms P-R-T Axes : 049 -11 234 degrees QTc Int : 455 ms SINUS RHYTHM WITH OCCASIONAL PREMATURE VENTRICULAR COMPLEXES LEFT BUNDLE BRANCH BLOCK ABNORMAL ECG WHEN COMPARED WITH ECG OF 26-FEB-2018 17:18, PREMATURE VENTRICULAR COMPLEXES ARE NOW PRESENT Confirmed by KATHERIN WEBBER, WENDI ([id number]) on 02/27/2018 11:37:20 AM Referred By: Confirmed By:WENDI PANDEY MD
--- NOTE | 2018-02-27 11:40 | EKG ---
Test Reason : Blood Pressure : / mmHG Vent. Rate : 059 BPM Atrial Rate : 059 BPM P-R Int : 150 ms QRS Dur : 132 ms QT Int : 434 ms P-R-T Axes : 041 -23 235 degrees QTc Int : 429 ms SINUS BRADYCARDIA LEFT BUNDLE BRANCH BLOCK ABNORMAL ECG WHEN COMPARED WITH ECG OF 10-FEB-2017 09:33, QUESTIONABLE CHANGE IN QRS AXIS Confirmed by WENDI PANDEY MD ([id number]) on 02/27/2018 11:40:01 AM Referred By: Confirmed By:WENDI PANDEY MD
== END 2018-02-27 13:23 | disposition left against medical advice (07) ==
LOC: JER 16:43 → JERBED 21:46 → UNDOADMOB 21:46 → JERBED 21:47
PROVIDERS: ADMIT Internal Medicine; ATTEND Family Medicine
DX: R07.9 Chest pain, unspecified (principal); I10 Essential (primary) hypertension; I50.9 Heart failure, unspecified; E78.5 Hyperlipidemia, unspecified; N40.0 Benign prostatic hyperplasia without lower urinary tract symptoms; K21.9 Gastro-esophageal reflux disease without esophagitis; Z79.82 Long term (current) use of aspirin
CPT/HCPCS: 36415; 71046-TC-FY; 76705-TC; 80048; 80053; 82550; 83735; 83880; 84100; 84484; 85025; 93005; 93010; 93306-TC; 99285-25; G0378

== ENCOUNTER 2018-10-27 06:37 | Emergency (ER) | payer OTHER ==
[2018-10-27 06:58] VITALS: BMI 26.4
--- NOTE | 2018-10-27 07:29 | PDOC ---
History of Present Illness - General Chief Complaint: Pain Stated Complaint: ABD PAIN Time Seen by Provider: 10/27/18 07:29 - History of Present Illness Initial Comments: 10/27/18 08:44 The patient is a 73 year old [place]er speaking male with a PMH of HTN, dyslipidemia, BPH, GERD, R sided lung mass, s/p thoracotomy in 07/19, that presented today complaining of LLQ abdominal pain that started overnight. The pain is constant, no aggravating/alleviating factors, no radiation, 9/10 in severity, no change in bowel habits, last BM was this morning, normal, no dysuria, no history of kidney stones in the past. The patient also reports pain in his right testicle, radiating to his right groin intermittently. It is present for a month. He went to his Urologist Dr Bateman, had endoscopy and was prescribed antibiotics, doesn't recall the name. He hasn't noticed improvement after finishing full course. He is sexually active, not compliant with protection. The patient denies fever, chills, nausea, vomiting, hematuria, melena, no penile discharge, skin rash. PCP: Dr Stewart from [facility] 10/27/18 08:52 Past History - Past Medical History Allergies/Adverse Reactions: Allergies Allergy/AdvReac Type Severity Reaction Status Date / Time No Known Allergies Allergy Verified 10/27/18 06:58 Home Medications: Ambulatory Orders Carvedilol [Coreg -] 25 mg PO BID 10/18/16 Losartan Potassium [Cozaar] 25 mg PO BID 10/18/16 Aspirin [ASA -] 81 mg PO DAILY 02/10/17 Tamsulosin HCl [Flomax] 0.4 mg PO DAILY 02/10/17 Atorvastatin Calcium [Lipitor] 10 mg PO DAILY 05/28/18 Guaifenesin AC [Robitussin AC -] 5 ml PO TID PRN #1 bottle MDD 15ml 07/24/18 Cardiac Disorders: Yes CVA: No COPD: No DVT: No HTN: Yes Hypercholesterolemia: Yes - Surgical History Abdominal Surgery: Yes Cholecystectomy: Yes - Immunization History Immunization Up to Date: Yes - Suicide/Smoking/Psychosocial Hx Smoking History: Never smoked Have you smoked in the past 12 months: No Number of Cigarettes Smoked Daily: 0 Information on smoking cessation initiated: No Hx Alcohol Use: No Drug/Substance Use Hx: No Substance Use Type: None Review of Systems - Review of Systems Able to Perform ROS?: Yes Comments:: 10/27/18 08:52 [place] Speaking Is the patient limited Italian proficient: Yes Constitutional: No: Symptoms Reported HEENTM: No: Symptoms Reported Respiratory: No: Symptoms reported Cardiac (ROS): No: Symptoms Reported ABD/GI: Yes: Symptoms Reported, See HPI. No: Nausea, Vomiting : Yes: Symptoms Reported, See HPI, Testicular Pain Musculoskeletal: No: Symptoms Reported Neurological: No: Symptoms reported *Physical Exam - Vital Signs Last Vital Signs Temp Pulse Resp BP Pulse Ox 98.0 F 89 19 124/74 98 10/27/18 06:38 10/27/18 06:38 10/27/18 06:38 10/27/18 06:38 10/27/18 06:38 - Physical Exam General Appearance: Yes: Nourished, Appropriately Dressed. No: Apparent Distress HEENT: positive: EOMI, MARION Respiratory/Chest: positive: Lungs Clear, Normal Breath Sounds. negative: Accessory Muscle Use Cardiovascular: positive: Regular Rhythm, Regular Rate, S1, S2. negative: Edema , Murmur Gastrointestinal/Abdominal: positive: Normal Bowel Sounds, Tender (LLQ), Soft, Guarding (LLQ), Tenderness. negative: Organomegaly, Pulsatile Mass, Hernia Male Genitalia: positive: normal genitalia, testicular tenderness (on right side ). negative: discharge, testicular mass, epididymus tender Musculoskeletal: positive: Normal Inspection. negative: CVA Tenderness Neurologic: positive: Fully Oriented, Alert, Motor Strength 5/5 ED Treatment Course - LABORATORY CBC & Chemistry Diagram: 10/27/18 08:48 10/27/18 08:48 Medical Decision Making - Medical Decision Making 10/27/18 08:56 The patient is a 73 year old male that presented with LLQ abdominal pain and right testicular pain. Differential diagnosis is broad, includes; diverticulitis , hernia, colitis, prostatitis, STD, colon mass, renal colic, UTI. We ordered CBC with diff, CMP, UA, u culture, GC and chlamydia, testicular US. We also ordered CT abdomen with IV contrast. He was given Tylenol for pain and NS. 10/27/18 11:43 Scrotal US with right epididymal cyst, bilateral hydrocele and varicocele, no torsion. Waiting for CT abdomen official report. CBC, CMP, UA normal, GC and chlamydia pending. 10/27/18 12:01 CT abdomen shows diverticulitis. The patient will be given 10 day course of Ciprofloxacin and Flagyl. DC home, f/u with PCP. *DC/Admit/Observation/Transfer Diagnosis at time of Disposition: Diverticulitis - Discharge Dispostion Condition at time of disposition: Fair Decision to Admit order: No - Referrals Referrals: Mayra Veliz [Primary Care Provider] - 7 days - Patient Instructions Printed Discharge Instructions: Diverticulitis Additional Instructions: The pain that you came to the hospital was caused by diverticulitis: inflection in your bowels. It was visible on CT of your abdomen. We recommend that you will take antibiotics (Ciprofloxacin and Flagyl) for 10 days as prescribed. We also noticed cyst in your right testicle. Please see your primary care physician within 5-7 days and urologist in a week or two. If you have severe abdominal pain, bleeding, fever, chills, or worsening of any of your symptoms, come back to emergency room as soon as possible. - Post Discharge Activity
--- NOTE | 2018-10-27 08:06 | PDOC ---
Attending Attestation - HPI HPI: 10/27/18 12:02 The patient is a 73 year old Maltese speaking male with a significant past medical history of HTN, dyslipidemia, BPH, GERD, R sided lung mass, s/p thoracotomy in 07/19, who presents today complaining of LLQ abdominal pain that started overnight. He reports the pain is constant without aggravating/ alleviating factors or radiation The pain is reported as 9/10 in severity. The patient also reports pain in his right testicle, radiating to his right groin intermittently for about a month. He went to his Urologist Dr Bateman, had endoscopy and was prescribed antibiotics, doesn't recall the name. He hasn't noticed improvement after finishing full course. He is sexually active, not compliant with protection. The patient denies fever, chills, nausea, vomiting, hematuria, melena, no penile discharge, skin rash. PCP: Dr Stewart from [facility] - Physicial Exam PE: 10/27/18 12:01 Vitals: Triage vital signs reviewed General Appearance: No acute distress, well nourished, well developed Head: Atraumatic Eyes: Pupils equal reactive round, extraocular movement intact Neck: Supple; No nuchal rigidity Chest Wall: Nontender Cardiac: Regular rate and rhythm, no murmurs, no rubs, no gallops Lungs: Clear to auscultation bilateral, good air movement bilaterally Abdomen: (+) LLQ tenderness to palpation. Soft, nondistended, normal bowel sounds, Extremities: Full range of motion to all extremities, no cyanosis, clubbing, or edema Skin: Warm and dry, no rashes or lesions, no rash, no petechiae Neuro: AOX3; Cranial Nerves 2-12 grossly intact, Strength intact to all extremities, Sensation intact to all extremities, gait normal Psych: Normal mood, normal affect - Medical Decision Making 10/27/18 12:02 Documentation prepared by Mary Ann Vaughn, acting as medical practice manager for Mendel Munoz MD <Mary Ann Vaughn - Last Filed: 10/27/18 12:02> - Resident Resident Name: Jodie Dunne - ED Attending Attestation I have performed the following: I have examined & evaluated the patient, The case was reviewed & discussed with the resident, I agree w/resident's findings & plan, Exceptions are as noted - HPI HPI: 10/27/18 08:05 73 years old past medical significant for hypertension hyperlipidemia BPH GERD - Medical Decision Making 73 years old with hypertension dyslipidemia BPH GERD right-sided lung mass presents with moderate to severe left lower quadrant pain started overnight. No fever no chills no nausea no vomiting diarrhea also complaining of chronic right testicle pain has been followed by urology for this CT shows acute diverticulitis ultrasound of the testicle shows a small cyst but no other acute findings patient was advised to follow-up with his urologist. Regarding his acute diverticulitis he was prescribed Cipro and Flagyl he has no fever he has no white count he is well-appearing his tolerating fluids by mouth Findings, the need for follow-up and strict return instructions discussed patient. <Mendel Munoz - Last Filed: 10/27/18 15:16>
[2018-10-27] MEDS ORDERED: SODIUM CHLORIDE 0.9% 1000 ML INFUS.BAG IV ONE (08:07)
[2018-10-27] MEDS ORDERED: ACETAMINOPHEN 1000 MG/100 ML VIAL (NON FORMULARY) IVPB ONE (08:07)
[2018-10-27] MEDS ORDERED: ACETAMINOPHEN INJECTION 100 ML IVPB ONE (08:38)
[2018-10-27 08:59] LABS: BASO % 0.9 % (0-2.0); EOS % 1.6 % (0-4.5); HEMOGLOBIN 14.5 GM/dL (11.7-16.9); LYMPH % 15.8 % (8-40); MCH 26.2 pg (25.7-33.7); MCHC 32.1 g/dl (32.0-35.9); MEAN CELL VOLUME 81.7 fl (80-96); MEAN PLT VOLUME 8.7 fl (7.5-11.1); MONO % 8.6 % (3.8-10.2); NEUT % 73.1 % (42.8-82.8); PLATELET COUNT 168 K/MM3 (134-434); RBC 5.51 M/mm3 (4.00-5.60); RDW 15.1 % (11.9-15.9); WHITE BLOOD COUNT 8.7 K/mm3 (4.0-10.0)
[2018-10-27 09:18] LABS: URINE APPEARANCE CLEAR; URINE BILIRUBIN NEGATIVE (<2.0 mg/dL); URINE COLOR YELLOW; URINE GLUCOSE (UA) NEGATIVE (NEGATIVE); URINE KETONE NEGATIVE (NEGATIVE); URINE LEUK ESTERASE NEGATIVE (NEGATIVE); URINE NITRITE NEGATIVE (NEGATIVE); URINE PROTEIN NEGATIVE (NEGATIVE); URINE UROBILINOGEN NEGATIVE mg/dL (0.2-1.0)
[2018-10-27 09:48] LABS: ALBUMIN 3.7 g/dl (3.4-5.0); ALK PHOS 85 U/L (45-117); ANION GAP 6 MMOL/L (8-16); BILIRUBIN,TOTAL 0.4 mg/dL (0.2-1); BLOOD UREA NITROGEN 18 mg/dL (7-18); CALCIUM 8.9 mg/dL (8.5-10.1); CHLORIDE 101 mmol/L (98-107); CO2 31 mmol/L (21-32); CREATININE 0.7 mg/dL (0.55-1.3); GLUCOSE,RANDOM 113 mg/dL (74-106); LIPASE 99 U/L (73-393); POTASSIUM 4.6 mmol/L (3.5-5.1); SGOT/AST 24 U/L (15-37); SGPT/ALT 33 U/L (13-61); SODIUM 137 mmol/L (136-145)
[2018-10-27] MEDS ORDERED: dilTIAZem HCL 50 MG/10 ML - 10 ML VIAL IVPUSH ONE (11:14)
[2018-10-27 12:48] VITALS: BP 128/78; PULSE 74; TEMP 98.4
== END 2018-10-27 13:01 | disposition home or self-care (01) ==
LOC: JER 06:37
PROC: 3E033NZ Introduction of Analgesics, Hypnotics, Sedatives into Peripheral Vein, Percutaneous Approach (ICD-10-PCS; principal; 2018-10-27)
DX: K57.92 Diverticulitis of intestine, part unspecified, without perforation or abscess without bleeding (principal); N50.3 Cyst of epididymis; N43.2 Other hydrocele; I86.1 Scrotal varices; I10 Essential (primary) hypertension; E78.5 Hyperlipidemia, unspecified; N40.0 Benign prostatic hyperplasia without lower urinary tract symptoms; K21.9 Gastro-esophageal reflux disease without esophagitis; Z90.2 Acquired absence of lung [part of]
CPT/HCPCS: 36415; 74177-TC; 76870-TC; 80053; 81003; 83690; 85025; 87491; 87591; 96374; 99283-25; J0131; J7030; Q9967

== ENCOUNTER 2019-03-05 18:15 | Emergency (ER) | payer OTHER ==
[2019-03-05 18:34] VITALS: TEMP 98.3; BMI 23.3
[2019-03-05] MEDS ORDERED: SODIUM CHLORIDE 1,000 ML IV STA (19:54)
[2019-03-05] MEDS ORDERED: ACETAMINOPHEN 1000 MG/100 ML VIAL (NON FORMULARY) IVPB ONE (19:54)
--- NOTE | 2019-03-05 19:56 | PDOC ---
History of Present Illness - General Chief Complaint: Pain, Acute Stated Complaint: PAIN Time Seen by Provider: 03/05/19 19:16 History Source: Patient Exam Limitations: Language Barrier ([employer] #[id number]) - History of Present Illness Travel History: No Initial Comments: 03/05/19 19:51 HISTORY OF PRESENT ILLNESS: This 73-year-old male with past medical history of lung cancer status post resection, hypertension, prostatitis, BPH, cholecystectomy, diverticulitis, hyperlipidemia who presents emergency department for evaluation of lower abdominal suprapubic pain. Patient reports the pain is been present for approximately one week and he has seen his urologist was put him on antibiotics for prostatitis. Patient is concerned as he continues to have pain and is requesting a reevaluation. Patient denies any dysuria, hematuria, urinary frequency, urinary hesitancy or difficulty with micturition. No recent travel or sick contacts. PAST MEDICAL HISTORY: see HPI SURGICAL HISTORY: see HPI ALLERGIES: No known drug allergies REVIEW OF SYSTEMS General/Constitutional: Denies fever or chills. Denies weakness, weight change. HEENT: Denies change in vision. Denies ear pain or discharge. Denies sore throat. Cardiovascular: Denies chest pain or shortness of breath. Respiratory: Denies cough, wheezing, or hemoptysis. Gastrointestinal: see HPI Genitourinary: see HPI Musculoskeletal: Denies joint or muscle swelling or pain. Denies neck or back pain. Skin and breasts: Denies rash or easy bruising. Neurologic: Denies headache, vertigo, loss of consciousness, or loss of sensation. Psychiatric: Denies depression or anxiety. Endocrine: Denies increased thirst. Denies abnormal weight change. Hematologic/Lymphatic: Denies anemia, easy bleeding, or history of blood clots. Allergic/Immunologic: Denies hives or skin allergy. Denies latex allergy. PHYSICAL EXAM General Appearance: Well-appearing, appropriately dressed. No apparent distress , no intoxication. HEENT: EOMI, PERRLA, normal ENT inspection, normal voice, TMs normal, pharynx normal. No conjunctival pallor. No photophobia, scleral icterus. Neck: Supple. Trachea midline. No tenderness, rigidity, carotid bruit, stridor , lymphadenopathy, or thyromegaly. Respiratory/Chest: Lungs CTAB. No shortness of breath, chest tenderness, respiratory distress, accessory muscle use. No crackles, rales, rhonchi, stridor , wheezing, dullness Cardiovascular: RRR. S1, S2. No JVD, murmur, bradycardia, tachycardia. Vascular Pulses: Dorsalis-Pedis (R): 2+, Dorsalis-Pedis (L): 2+ Gastrointestinal/Abdominal: Normal bowel sounds. Abdomen soft, non-distended. Diffuse lower abdominal tenderness without rebound tenderness. - Psoas/ obturator signs. No organomegaly, pulsatile mass, guarding, hernia, hepatomegaly , splenomegaly. No perineal tenderness. Lymphatic: No adenopathy, tenderness. Musculoskeletal/Extremities: Normal inspection. FROM of all extremities, normal capillary refill. Pelvis Stable. No CVA tenderness. No tenderness to extremities, pedal edema, swelling, erythema or deformity. Integumentary: Appropriate color, dry, warm. No cyanosis, erythema, jaundice or rash Neurologic: cellophane bath mixer II-XII intact. Fully oriented, alert. Appropriate mood/affect. Motor strength 5/5. No appreciable EOM palsy, facial droop or sensory deficit. Past History - Past Medical History Allergies/Adverse Reactions: Allergies Allergy/AdvReac Type Severity Reaction Status Date / Time No Known Allergies Allergy Verified 10/27/18 06:58 Home Medications: Ambulatory Orders Carvedilol [Coreg -] 25 mg PO BID 10/18/16 Losartan Potassium [Cozaar] 25 mg PO BID 10/18/16 Aspirin [ASA -] 81 mg PO DAILY 02/10/17 Tamsulosin HCl [Flomax] 0.4 mg PO DAILY 02/10/17 Atorvastatin Calcium [Lipitor] 10 mg PO DAILY 05/28/18 Guaifenesin AC [Robitussin AC -] 5 ml PO TID PRN #1 bottle MDD 15ml 07/24/18 Ciprofloxacin HCl [Cipro] 500 mg PO BID 10 Days #20 tablet 10/27/18 Metronidazole [Flagyl] 500 mg PO Q8H 10 Days #30 capsule 10/27/18 Cardiac Disorders: Yes CVA: No COPD: No DVT: No HTN: Yes Hypercholesterolemia: Yes Lung CA: Yes - Surgical History Abdominal Surgery: Yes Cholecystectomy: Yes - Immunization History Immunization Up to Date: Yes - Suicide/Smoking/Psychosocial Hx Smoking History: Former smoker Have you smoked in the past 12 months: No Number of Cigarettes Smoked Daily: 0 Information on smoking cessation initiated: No Hx Alcohol Use: No Drug/Substance Use Hx: No Substance Use Type: None *Physical Exam - Vital Signs Last Vital Signs Temp Pulse Resp BP Pulse Ox 98.3 F 73 16 141/82 97 03/05/19 18:30 03/05/19 18:30 03/05/19 18:30 03/05/19 18:30 03/05/19 18:30 ED Treatment Course - LABORATORY CBC & Chemistry Diagram: 03/05/19 20:04 03/05/19 20:04 Medical Decision Making - Medical Decision Making 03/05/19 19:55 A/P: 73-year-old male with lower abdominal pain for one week Differential diagnosis includes but not limited to prostatitis, diverticulitis, metastatic disease, obstruction, perforation, appendicitis, cystitis Basic labs Urinalysis, urine culture CTAP with IV contrast Normal saline 1 L bolus Tylenol 1 g IV now Reassess 03/05/19 22:55 Laboratory testing is unremarkable. Urinalysis is unremarkable. EKG sinus rhythm with frequent PVCs noted. Rate of 81. Left bundle-branch block is noted is unchanged from EKG done 07/24/18. CT of the abdomen and pelvis as read by Dr. Morales: No definite CT findings of acute pathology or visualized. Colonic diverticulosis is seen without evidence of current diverticulitis. Interval resolution of acute sigmoid diverticulitis is seen in comparison to his CT of 10/27/18. A small at least partially loculated right pleural effusion is noted without obvious interval change in comparison to a chest CT exam of 01/09/18. This finding appears decreased in size in comparison to the 10/27/18 CT study. As on the prior exams the right hepatic lobe laterally demonstrates several small areas of minimal to mild indentation which may represent subcapsular fluid accumulation. No obvious interval changes noted. Correlation with 3 month follow-up contrast enhanced CT or MRI suggested to document continued stability was otherwise clinically indicated. Small stable hepatic cysts. Status post cholecystectomy. 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 I discussed the physical exam findings, ancillary test results and final diagnoses with the patient. I answered all of the patient's questions. The patient was satisfied with the care received and felt comfortable with the discharge plan and treatment plan. The patient will call their primary care physician within 24 hours to arrange follow-up and will return to the Emergency Department with any new, persistent or worsening symptoms. *DC/Admit/Observation/Transfer Diagnosis at time of Disposition: Abdominal pain Qualifiers: Abdominal location: lower abdomen, unspecified Qualified Code(s): R10.30 - Lower abdominal pain, unspecified - Discharge Dispostion Disposition: HOME Condition at time of disposition: Fair Decision to Admit order: No - Referrals - Patient Instructions Additional Instructions: Continue your current antibiotics. Follow-up with Dr. Rios for continued evaluation of your liver and GI upset. Follow-up with Dr. Haely for reevaluation of your prostate. Return to the emergency department for any new or worsening symptoms. Thank you very much for choosing us to provide emergent health care needs. Contina con tus antibiticos actuales. Fazal un seguimiento con el Dr. Rios para alycia evaluacin continua de manning hgado y malestar gastrointestinal. Fazal un seguimiento con el Dr. Haley para reevaluar manning prstata. Regrese al departamento de emergencias para cualquier sntoma nuevo o que empeore. Muchas mikki por elegirnos para proporcionar necesidades de atencin mdica de emergencia. - Post Discharge Activity
[2019-03-05] MEDS ORDERED: ACETAMINOPHEN INJECTION 100 ML IVPB ONE (20:13)
[2019-03-05 20:37] LABS: BASO % 0.9 % (0-2.0); EOS % 1.2 % (0-4.5); HEMATOCRIT 45.8 % (35.4-49); HEMOGLOBIN 14.8 GM/dL (11.7-16.9); LYMPH % 19.2 % (8-40); MCH 28.1 pg (25.7-33.7); MCHC 32.4 g/dl (32.0-35.9); MEAN CELL VOLUME 86.8 fl (80-96); MEAN PLT VOLUME 9.4 fl (7.5-11.1); MONO % 7.9 % (3.8-10.2); NEUT % 70.8 % (42.8-82.8); PLATELET COUNT 155 K/MM3 (134-434); RBC 5.27 M/mm3 (4.00-5.60); RDW 14.9 % (11.9-15.9); WHITE BLOOD COUNT 10.1 K/mm3 (4.0-10.0)
[2019-03-05 21:14] LABS: ALBUMIN 3.8 g/dl (3.4-5.0); ALK PHOS 67 U/L (45-117); BILIRUBIN,TOTAL 0.2 mg/dL (0.2-1); BLOOD UREA NITROGEN 9 mg/dL (7-18); CALCIUM 9.1 mg/dL (8.5-10.1); CHLORIDE 104 mmol/L (98-107); CO2 29 mmol/L (21-32); CREATININE 0.7 mg/dL (0.55-1.3); GLUCOSE,RANDOM 124 mg/dL (74-106); LIPASE 149 U/L (73-393); POTASSIUM 4.4 mmol/L (3.5-5.1); SGOT/AST 30 U/L (15-37); SGPT/ALT 39 U/L (13-61); SODIUM 139 mmol/L (136-145); TOT PROT 7.1 g/dl (6.4-8.2)
[2019-03-05 21:31] LABS: ANION GAP 7 MMOL/L (8-16)
[2019-03-05 22:06] LABS: PH,URINE 5.5 (5.0-8.0); URINE APPEARANCE CLEAR; URINE BILIRUBIN NEGATIVE (NEGATIVE); URINE COLOR YELLOW; URINE GLUCOSE (UA) NEGATIVE (NEGATIVE); URINE KETONE NEGATIVE (NEGATIVE); URINE LEUK ESTERASE NEGATIVE (NEGATIVE); URINE NITRITE NEGATIVE (NEGATIVE); URINE PROTEIN NEGATIVE (NEGATIVE); URINE UROBILINOGEN 0.2 mg/dL (0.2-1.0)
[2019-03-05 22:58] VITALS: BP 124/67; PULSE 81
--- NOTE | 2019-03-05 23:38 | PDOC ---
*Physical Exam - Vital Signs Last Vital Signs Temp Pulse Resp BP Pulse Ox 98.3 F 81 18 124/67 97 03/05/19 18:30 03/05/19 22:57 03/05/19 22:57 03/05/19 22:57 03/05/19 22:57 ED Treatment Course - LABORATORY CBC & Chemistry Diagram: 03/05/19 20:04 03/05/19 20:04 - ADDITIONAL ORDERS Additional order review: Laboratory Results 03/05/19 03/05/19 22:01 20:04 Sodium 139 Potassium 4.4 Chloride 104 Carbon Dioxide 29 Anion Gap 7 L BUN 9 Creatinine 0.7 Creat Clearance w eGFR 110.55 Random Glucose 124 H Calcium 9.1 Total Bilirubin 0.2 AST 30 ALT 39 Alkaline Phosphatase 67 Total Protein 7.1 Albumin 3.8 Lipase 149 Urine Color Yellow Urine Appearance Clear Urine pH 5.5 Ur Specific [place] 1.041 H Urine Protein Negative Urine Glucose (UA) Negative Urine Ketones Negative Urine Blood Negative Urine Nitrite Negative Urine Bilirubin Negative Urine Urobilinogen 0.2 Ur Leukocyte Esterase Negative 03/05/19 20:04 RBC 5.27 MCV 86.8 MCHC 32.4 RDW 14.9 MPV 9.4 Neutrophils % 70.8 Lymphocytes % 19.2 D Monocytes % 7.9 Eosinophils % 1.2 Basophils % 0.9 - Medications Given in the ED: ED Medications Discontinued Medications Generic Name Dose Route Start Last Admin Trade Name Mattq PRN Reason Stop Dose Admin Acetaminophen 1,000 mg 03/05/19 19:54 03/05/19 20:31 Ofirmev Injection - IVPB 03/05/19 19:55 1,000 mg ONCE ONE Administration Sodium Chloride 1,000 mls @ 1,000 mls/hr 03/05/19 19:54 03/05/19 20:31 Normal Saline - IV 03/05/19 20:53 1,000 mls/hr ASDIR STA Administration Medical Decision Making - Medical Decision Making 03/05/19 23:38 Case discussed with BARAK Dominguez Agree with assessment and plan *DC/Admit/Observation/Transfer Diagnosis at time of Disposition: Abdominal pain Qualifiers: Abdominal location: lower abdomen, unspecified Qualified Code(s): R10.30 - Lower abdominal pain, unspecified - Discharge Dispostion Disposition: HOME Condition at time of disposition: Fair - Referrals - Patient Instructions Additional Instructions: Continue your current antibiotics. Follow-up with Dr. Rios for continued evaluation of your liver and GI upset. Follow-up with Dr. Haley for reevaluation of your prostate. Return to the emergency department for any new or worsening symptoms. Thank you very much for choosing us to provide emergent health care needs. Contina con tus antibiticos actuales. Fazal un seguimiento con el Dr. Rios para alycia evaluacin continua de manning hgado y malestar gastrointestinal. Fazal un seguimiento con el Dr. Haley para reevaluar manning prstata. Regrese al departamento de emergencias para cualquier sntoma nuevo o que empeore. Muchas mikki por elegirnos para proporcionar necesidades de atencin mdica de emergencia. - Post Discharge Activity
--- NOTE | 2019-03-06 12:23 | EKG ---
Test Reason : Blood Pressure : / mmHG Vent. Rate : 081 BPM Atrial Rate : 081 BPM P-R Int : 148 ms QRS Dur : 132 ms QT Int : 408 ms P-R-T Axes : 054 016 161 degrees QTc Int : 473 ms SINUS RHYTHM WITH FREQUENT and consecutive PREMATURE VENTRICULAR COMPLEXES LEFT BUNDLE BRANCH BLOCK ABNORMAL ECG WHEN COMPARED WITH ECG OF 24-JUL-2018 11:08, T WAVE INVERSION MORE EVIDENT IN LATERAL LEADS Confirmed by KRYSTIAN WEBBER, ERICKSON ([id number]) on 03/06/2019 12:23:18 PM Referred By: Confirmed By:ERICKSON BOLAND MD
== END 2019-03-05 23:03 | disposition home or self-care (01) ==
LOC: JER 18:15
PROC: 3E033NZ Introduction of Analgesics, Hypnotics, Sedatives into Peripheral Vein, Percutaneous Approach (ICD-10-PCS; principal; 2019-03-05)
DX: N40.1 Benign prostatic hyperplasia with lower urinary tract symptoms (principal); N41.8 Other inflammatory diseases of prostate; I10 Essential (primary) hypertension; E78.5 Hyperlipidemia, unspecified; K57.90 Diverticulosis of intestine, part unspecified, without perforation or abscess without bleeding; Z85.118 Personal history of other malignant neoplasm of bronchus and lung
CPT/HCPCS: 36415; 74177-TC; 80053; 81003; 83690; 85025; 93005; 93010; 99283-25; J0131; J7030

== ENCOUNTER 2019-04-05 08:13 | Emergency (ER) | payer OTHER ==
[2019-04-05 08:21] VITALS: TEMP 97.8; BMI 24.1
[2019-04-05] MEDS ORDERED: ASPIRIN 81 MG CHEWABLE TABLETS PO ONE (08:46)
--- NOTE | 2019-04-05 08:57 | PDOC ---
Attending Attestation - Resident Resident Name: AlainaAbby - ED Attending Attestation I have performed the following: I have examined & evaluated the patient, The case was reviewed & discussed with the resident, I agree w/resident's findings & plan, Exceptions are as noted - HPI HPI: 73 yo M history lung CA (s/p resection), HTN, HL, CHF, BPH presents with episode of weakness this morning associated with pressure sensation in the upper chest. He states that he thought his blood pressure was high so he took his medication. It subsequently resolved, however, he was concerned, so he sought evaluation. Asymptomatic at present. - Physicial Exam PE: GENERAL: Awake, alert, and fully oriented, in no acute distress HEAD: No signs of trauma EYES: PERRLA, EOMI, sclera anicteric, conjunctiva clear ENT: Auricles normal inspection, hearing grossly normal, nares patent, oropharynx clear without exudates. Moist mucosa NECK: Normal ROM, supple, no lymphadenopathy, JVD, or masses LUNGS: Breath sounds equal, clear to auscultation bilaterally. No wheezes, and no crackles HEART: Regular rate and rhythm, normal S1 and S2, no murmurs, rubs or gallops ABDOMEN: Soft, nontender, normoactive bowel sounds. No guarding, no rebound. No masses EXTREMITIES: Normal range of motion, no edema. No clubbing or cyanosis. No cords, erythema, or tenderness NEUROLOGICAL: Cranial nerves II through XII grossly intact. Normal speech, normal gait. Motor and sensation intact SKIN: Warm, Dry, normal turgor, no rashes or lesions noted. +Well-healed incisions to R chest wall. - Medical Decision Making Pt with multiple cardiac risk factors, although symptoms are somewhat atypical for ACS. However, he also has risk factors for PE, will obtain CTA.
[2019-04-05] MEDS ORDERED: ASPIRIN 81 MG CHEWABLE TABLETS ONE (09:09)
--- NOTE | 2019-04-05 09:10 | PDOC ---
History of Present Illness - General Chief Complaint: Chest Pain Stated Complaint: CHEST PAIN Time Seen by Provider: 04/05/19 08:22 History Source: Patient Exam Limitations: Language Barrier - History of Present Illness Initial Comments: 04/05/19 09:01 Pt is a 73yo M with PMH of Lung Ca s/p R Upper Lobectomy 07/2018, CHF, HTN, HLD, BPH presenting to ED for chest pain. Pt states that he went for his morning walk today at around 7am and started to feel a pressure in his chest associated with shortness of breath. He also states that he felt weak to the point that he thought he might fall. He went home and took his bp meds. He states it helped a little but he felt concerned. States he still feels some pressure in the upper chest/neck. He has not had pain with exertion in the past. He denies numbness/ tingling, cough,fevers, chills, hemoptysis, recent travel, weight gain, SOB with rest, n/v/d, abdominal pain, headaches, changes in vision, syncope. PMD: Darren Cards: PMH; see hpi PSH: see hpi Meds: see med rec Allergies: nkda Past History - Past Medical History Allergies/Adverse Reactions: Allergies Allergy/AdvReac Type Severity Reaction Status Date / Time No Known Allergies Allergy Verified 04/05/19 08:21 Home Medications: Ambulatory Orders Carvedilol [Coreg -] 25 mg PO BID 10/18/16 Losartan Potassium [Cozaar] 25 mg PO BID 10/18/16 Aspirin [ASA -] 81 mg PO DAILY 02/10/17 Tamsulosin HCl [Flomax] 0.4 mg PO DAILY 02/10/17 Atorvastatin Calcium [Lipitor] 10 mg PO DAILY 05/28/18 Guaifenesin AC [Robitussin AC -] 5 ml PO TID PRN #1 bottle MDD 15ml 07/24/18 Ciprofloxacin HCl [Cipro] 500 mg PO BID 10 Days #20 tablet 10/27/18 Metronidazole [Flagyl] 500 mg PO Q8H 10 Days #30 capsule 10/27/18 Cancer: Yes (lung) Cardiac Disorders: Yes CVA: No COPD: No DVT: No Diabetes: Yes HTN: Yes Hypercholesterolemia: Yes Seizures: Yes Lung CA: Yes - Surgical History Abdominal Surgery: Yes Cholecystectomy: Yes Lung Surgery: Yes - Immunization History Immunization Up to Date: Yes - Suicide/Smoking/Psychosocial Hx Smoking History: Never smoked Have you smoked in the past 12 months: No Number of Cigarettes Smoked Daily: 0 Hx Alcohol Use: No Drug/Substance Use Hx: No Substance Use Type: None Review of Systems - Review of Systems Constitutional: No: Chills, Fever, Weakness HEENTM: No: Symptoms Reported Respiratory: Yes: See HPI, SOB with Exertion. No: Cough, Productive cough Cardiac (ROS): Yes: Chest Tightness. No: Lightheadedness, Palpitations, Syncope ABD/GI: No: Constipated, Diarrhea, Nausea, Vomiting, Abdominal cramping : No: Burning, Dysuria Musculoskeletal: No: Back Pain, Joint Pain, Muscle Pain, Neck Pain Integumentary: No: Symptoms Reported Neurological: No: Headache, Numbness, Tingling *Physical Exam - Vital Signs Last Vital Signs Temp Pulse Resp BP Pulse Ox 97.8 F 68 18 122/66 98 04/05/19 08:18 04/05/19 10:54 04/05/19 10:54 04/05/19 10:54 04/05/19 10:54 - Physical Exam General Appearance: Yes: Nourished, Appropriately Dressed. No: Apparent Distress HEENT: positive: EOMI, [place], Normal ENT Inspection Neck: positive: Trachea midline, Supple Respiratory/Chest: positive: Lungs Clear, Normal Breath Sounds Cardiovascular: positive: Regular Rhythm, Regular Rate, S1, S2. negative: Edema , JVD, Murmur Vascular Pulses: Carotid (R): 2+, Carotid (L): 2+, Dorsalis-Pedis (R): 2+, Doralis-Pedis (L): 2+ Gastrointestinal/Abdominal: positive: Normal Bowel Sounds, Soft. negative: Tender Musculoskeletal: negative: CVA Tenderness Extremity: positive: Normal Capillary Refill. negative: Swelling, Calf Tenderness Integumentary: positive: Normal Color, Dry, Warm, Other (surgical scar on R thorax) Neurologic: positive: thin film technician II-XII NML intact, Fully Oriented, Alert, Normal Mood/ Affect, Normal Response, Motor Strength 5/5 Heart Score/ECG Review - History History: Slightly suspicious - Electrocardiogram EKG: Normal - Age Age: >/= 65 - Risk Factors Risk Factors Heart Score: Yes Hx Hypercholesterolemia, Yes Hx Hypertension Based on the list above the patient has:: 1-2 risk factors - Troponin Troponin: </= normal limit - Score Heart Score - Total: 3 ED Treatment Course - LABORATORY CBC & Chemistry Diagram: 04/05/19 08:55 04/05/19 08:55 - ADDITIONAL ORDERS Additional order review: Laboratory Results 04/05/19 04/05/19 04/05/19 11:00 08:55 08:55 Sodium 138 Potassium 4.0 Chloride 103 Carbon Dioxide 28 Anion Gap 7 L BUN 15 Creatinine 0.8 Creat Clearance w eGFR 94.76 Random Glucose 136 H Calcium 8.4 L Magnesium 2.3 Total Bilirubin 0.5 AST 27 ALT 32 Alkaline Phosphatase 63 Creatine Kinase 143 Troponin I < 0.02 < 0.02 Total Protein 6.5 Albumin 3.7 04/05/19 08:55 RBC 5.31 MCV 84.9 MCHC 32.7 RDW 15.2 MPV 9.0 Neutrophils % 74.1 Lymphocytes % 16.1 Monocytes % 8.4 Eosinophils % 0.9 Basophils % 0.5 - RADIOLOGY Radiology Studies Ordered: Category Date Time Status CHEST CTA [CT] Stat CT Scan 04/05/19 08:46 Completed CHEST PA & LAT [RAD] Stat Radiology 04/05/19 08:25 Completed - Medications Given in the ED: ED Medications Discontinued Medications Generic Name Dose Route Start Last Admin Trade Name Mattq PRN Reason Stop Dose Admin Aspirin 162 mg 04/05/19 08:46 04/05/19 09:00 Asa - PO 04/05/19 08:47 162 mg ONCE ONE Administration Medical Decision Making - Medical Decision Making 04/05/19 09:05 Pt is a 73yo M with PMH of Lung Ca s/p thoracotomy 07/2018, CHF, HTN, HLD, BPH presenting to ED for chest pain. Pt states that he went for his morning walk today and started to feel a pressure in his chest associated with shortness of breath. He also states that he felt weak to the point that he thought he might fall. He went home and took his bp meds. He states it helped a little but he continued to have a pressure in his upper chest and neck. He has not had pain with exertion in the past. He denies numbness/tingling, cough,fevers, chills, hemoptysis, recent travel, weight gain, SOB with rest, n/v/d, abdominal pain, headaches, changes in vision, syncope. Pain started about 2 hours ago Vitals: wnl PE: normal, no pitting edema, no jvd, lungs cta, alert, oriented, ambulatory ddx includes but not limited to acs, stable angina, pe, pna, ptx, malignancy, electrolyte/metabolic abnormality, msk, bronchitis -ekg, cxr, CTA -labs, cardiac profile -asa ekg: LBBB with occasional PVC at 80bpm. HI 160, QTc 477. Negative sgarbossa CXR: s/p lobectomy with stable post op changes. no new infiltrates or consolidations 04/05/19 09:40 WBC wnl. Chemistries normal with normal kidney function. pending cardiac profile. pt states he is not having pain at this time 04/05/19 11:00 Normal trop and CK. Pending CT read. HEART score 3. will check second troponin and reassess. 04/05/19 12:46 2nd trop negative. Pt not having active chest pain. safe for dc home. pt has a senior compliance officer and can make appointments. given dc instructions and return precautions *DC/Admit/Observation/Transfer Diagnosis at time of Disposition: Chest pain Qualifiers: Chest pain type: unspecified Qualified Code(s): R07.9 - Chest pain, unspecified - Discharge Dispostion Disposition: HOME Condition at time of disposition: Good Decision to Admit order: No - Referrals Referrals: Gurpreet Banks MD [Primary Care Provider] - - Patient Instructions Printed Discharge Instructions: DI for Chest Pain Additional Instructions: Hoy te vieron en la [place] de emergencias por dolor en el pecho. Los anlisis de medhat, el ECG y la TC son normales. Recomiendo hacer alycia merry con manning cardilogo maana o el juanjose para asegurarse de que todo est philomena con manning corazn. Suma recomiendo hacer alycia merry con manning mdico de atencin primaria suma. [place] lizy medicamentos segn las indicaciones. Puede radha Tylenol o aspirina para el dolor. Regrese a la [place] de emergencias si el dolor de pecho empeora, tiene dificultad para respirar, se desmaya o si se presenta algn sntoma huyo. Talia You were seen in the emergency room today for chest pain. The blood tests, EKG and CT scan are all normal. I recommend making an appointment with your senior compliance officer tomorrow or on Saturday to make sure everything is ok with your heart. I also recommend making an appointment with your primary care doctor as well. Take your medications as directed. You can take Tylenol or aspirin for the pain. Come back to the emergency room if chest pain gets worse, you have difficulty breathing, you pass out or if any new concerning symptom develops. Thank you Print Language: GUAMANIAN - Post Discharge Activity
--- NOTE | 2019-04-05 09:18 | EKG ---
Test Reason : Blood Pressure : / mmHG Vent. Rate : 080 BPM Atrial Rate : 080 BPM P-R Int : 160 ms QRS Dur : 134 ms QT Int : 414 ms P-R-T Axes : 068 040 108 degrees QTc Int : 477 ms SINUS RHYTHM WITH OCCASIONAL PREMATURE VENTRICULAR COMPLEXES LEFT BUNDLE BRANCH BLOCK ABNORMAL ECG WHEN COMPARED WITH ECG OF 05-MAR-2019 18:37, NO SIGNIFICANT CHANGE WAS FOUND Confirmed by KRYSTIAN WEBBER, ERICKSON ([id number]) on 04/05/2019 9:18:41 AM Referred By: Confirmed By:ERICKSON BOLAND MD
[2019-04-05 09:30] LABS: BASO % 0.5 % (0-2.0); EOS % 0.9 % (0-4.5); HEMATOCRIT 45.1 % (35.4-49); HEMOGLOBIN 14.8 GM/dL (11.7-16.9); LYMPH % 16.1 % (8-40); MCH 27.8 pg (25.7-33.7); MCHC 32.7 g/dl (32.0-35.9); MEAN CELL VOLUME 84.9 fl (80-96); MONO % 8.4 % (3.8-10.2); NEUT % 74.1 % (42.8-82.8); PLATELET COUNT 171 K/MM3 (134-434); RBC 5.31 M/mm3 (4.00-5.60); RDW 15.2 % (11.9-15.9); WHITE BLOOD COUNT 8.1 K/mm3 (4.0-10.0)
[2019-04-05 09:38] LABS: ALBUMIN 3.7 g/dl (3.4-5.0); ALK PHOS 63 U/L (45-117); ANION GAP 7 MMOL/L (8-16); BILIRUBIN,TOTAL 0.5 mg/dL (0.2-1); BLOOD UREA NITROGEN 15 mg/dL (7-18); CALCIUM 8.4 mg/dL (8.5-10.1); CHLORIDE 103 mmol/L (98-107); CO2 28 mmol/L (21-32); CREATININE 0.8 mg/dL (0.55-1.3); GLUCOSE,RANDOM 136 mg/dL (74-106); MAGNESIUM 2.3 mg/dL (1.8-2.4); SGOT/AST 27 U/L (15-37); SGPT/ALT 32 U/L (13-61); SODIUM 138 mmol/L (136-145); TOT PROT 6.5 g/dl (6.4-8.2)
[2019-04-05 10:55] VITALS: BP 122/66; PULSE 68
== END 2019-04-05 12:46 | disposition home or self-care (01) ==
LOC: JER 08:13
DX: R07.9 Chest pain, unspecified (principal); I11.0 Hypertensive heart disease with heart failure; I50.9 Heart failure, unspecified; E78.5 Hyperlipidemia, unspecified; N40.0 Benign prostatic hyperplasia without lower urinary tract symptoms; Z85.118 Personal history of other malignant neoplasm of bronchus and lung; Z90.2 Acquired absence of lung [part of]
CPT/HCPCS: 36415; 71046-TC-FY; 71275-TC; 80053; 82550; 83735; 84484; 85025; 93005; 93010; 99283-25

== ENCOUNTER 2019-10-10 12:22 | Emergency (ER) | payer OTHER ==
[2019-10-10 12:28] VITALS: BP 134/71; PULSE 69; TEMP 98.8; BMI 23.4
--- NOTE | 2019-10-10 13:19 | PDOC ---
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 Pt initially refused mine safety director, but was unable to successfully communicate, and then agreed to use the telephone mine safety director. 74 year old male with PMH anxiety, depression, HTN, HLD, CHF, BPH, lung cancer ( s/p Right Upper Lobectomy x13 months ago, no chemo, no radiation) presented to ED for chest "pressure" and difficulty urinating since yesterday. Pt reported he was seen by his urologist Dr. Haley yesterday, mentioned he had some pain with urination, and was placed on Bactrim. Pt has plan for TUVP 11/19/19 and brought his informational sheet, and is requesting his pre-op labs be drawn today, even though his surgery is >10 days. He reported this pressure in his chest is intermittent, radiates up his throat, no aggravating or alleviating factors, no association with food, no association with deep inspiration. He denied chest "pain" and reported he is not worried about his heart. He denied cough, fever, vomiting, diarrhea, hematuria, shortness of breath. Past History - Past Medical History Allergies/Adverse Reactions: Allergies Allergy/AdvReac Type Severity Reaction Status Date / Time No Known Allergies Allergy Verified 10/10/19 12:25 Home Medications: Ambulatory Orders Carvedilol [Coreg -] 25 mg PO BID 10/18/16 Losartan Potassium [Cozaar] 25 mg PO BID 10/18/16 Aspirin [ASA -] 81 mg PO DAILY 02/10/17 Tamsulosin HCl [Flomax] 0.4 mg PO DAILY 02/10/17 Atorvastatin Calcium [Lipitor] 10 mg PO DAILY 05/28/18 Guaifenesin AC [Robitussin AC -] 5 ml PO TID PRN #1 bottle MDD 15ml 07/24/18 Ciprofloxacin HCl [Cipro] 500 mg PO BID 10 Days #20 tablet 10/27/18 Metronidazole [Flagyl] 500 mg PO Q8H 10 Days #30 capsule 10/27/18 HTN: Yes Hypercholesterolemia: Yes Lung CA: Yes (S/P RUL Lobectomy) - Surgical History Abdominal Surgery: Yes Cholecystectomy: Yes Lung Surgery: Yes - Immunization History Immunization Up to Date: Yes - Psycho Social/Smoking Cessation Hx Smoking History: Never smoked Have you smoked in the past 12 months: No Number of Cigarettes Smoked Daily: 0 Hx Alcohol Use: No Drug/Substance Use Hx: No Substance Use Type: None Review of Systems - Review of Systems Able to Perform ROS?: Yes Comments:: ROS General: denied fever, chills, generalized weakness. HEENT: admitted to throat pain. denied rhinorrhea, ear pain. Cardiovascular: admitted chest pain. denied palpitations, syncope, diaphoresis. Respiratory: denied shortness of breath, cough, sputum production, hemoptysis. Gastrointestinal: denied abdominal pain, nausea, vomiting, diarrhea, constipation, blood in stool. Genitourinary: admitted to dysuria. denied hematuria, urinary incontinence, flank pain. Back: denied back pain. Musculoskeletal: denied joint pain, muscle pain, joint swelling. Neurological: denied headache, dizziness, numbness, tingling, weakness. Integumentary: denied rash, laceration, abrasion. Hematologic/Lymphatic: denied bruising or bleeding. PE Constitutional: Well-nourished, Well-developed, appearing stated age. HEENT: head is normocephalic, atraumatic. EOMI. PERRLA. no posterior pharyngeal erythema. no tonsillar swelling or exudates bilaterally. uvula midline. no peritonsillar swelling, tenderness or abscess. no jaw tenderness or misalignment. Neck: supple. Full ROM. Cardiovascular: regular heart rhythm. no murmurs. no pericardial friction rub. Respiratory: clear to auscultation bilaterally. no crackles, rhonchi or wheezing. no stridor. Chest: no tenderness to palpation of anterior chest wall. Gastrointestinal: soft, nontender. normal bowel sounds. no rebound, guarding, masses. Extremities: peripheral pulses intact. no lower extremity edema. Neurological: CN 2-12 grossly intact. moves all four extremities. Psych: awake, alert, oriented x3. follows commands. answers questions appropriately. *Physical Exam - Vital Signs Last Vital Signs Temp Pulse Resp BP Pulse Ox 98.8 F 69 16 134/71 97 10/10/19 12:25 10/10/19 12:25 10/10/19 12:25 10/10/19 12:25 10/10/19 12:25 ED Treatment Course - LABORATORY CBC & Chemistry Diagram: 10/10/19 13:00 10/10/19 16:11 - RADIOLOGY Radiology Studies Ordered: Category Date Time Status CHEST PA & LAT [RAD] Stat Radiology 10/10/19 12:35 Ordered Medical Decision Making - Medical Decision Making 74 year old male with above PMH presented to ED for chest pressure and difficulty urinating since yesterday. Initial Vital Signs Temp Pulse Resp BP Pulse Ox 98.8 F 69 16 134/71 97 10/10/19 12:25 10/10/19 12:25 10/10/19 12:25 10/10/19 12:25 10/10/19 12:25 Afebrile. No tachycardia. No tachypnea. Mild hypertension. No hypoxia on room air. Labs ordered: CBC, CMP, Mag, cardiac profile, PT/PTT/INR, UA/UC Imaging ordered: POCUS Post-void residual, POCUS renal, CXR Medications ordered: none EKG performed at 1228: rate 86, sinu rhythm with two PVCs, LBBB, ST segments appear similar to EKG performed 04/05/19. CXR report: Name: [facility] DEPARTMENT OF RADIOLOGY Phys: Cathy Cast RESIDENT : 1945 Age: 74 Sex: M [facility] Acct: [id number] Loc: [address] Exam Date: 10/10/19 Status: [facility] [place] [address] Unit Number: [id number] EXAM#: TYPE/EXAM: RESULT: [id number] RAD/CHEST PA LAT 2 view chest Clinical history: Chest pain Comparison studies: 09/25/2019 Findings compared to the chest CT 09/25/2019, there is a round smooth nodular density overlying the right lung base which conforms to the density of the nipple as seen on the CT scan in the region , no nodules were seen on the recent CT scan. There appears to be a matched density in the left lung Trachea midline, normal heart size. Postsurgical changes consistent with right upper lobectomy with surgical chain sutures noted. Compensatory hyperaeration noted in the right lower lobe. No pneumothorax. No acute changes in the lungs identified Impression: Status post right upper lobectomy with no acute infiltrate or edema in the lungs, no suspicious findings seen since most recent imaging 09/25/2019. Reported By: Karri Bliss MD 10/10/19 1447 10/10/19 13:27 Post-void residual performed by Dr. Lewis, PGY3 EM Resident, revealed an empty bladder. Bilateral renal POCUS US performed by Dr. Lewis, PGY3 EM Resident, revealed no hydronephrosis bilaterally. Do no suspect urinary obstruction, urinary retention. 10/10/19 13:53 CBC WBC 9.4 K/mm3 (4.0-10.0) 10/10/19 13:00 RBC 5.49 M/mm3 (4.00-5.60) 10/10/19 13:00 Hgb 15.6 GM/dL (11.7-16.9) 10/10/19 13:00 Hct 47.7 % (35.4-49) 10/10/19 13:00 MCV 86.8 fl (80-96) 10/10/19 13:00 MCH 28.4 pg (25.7-33.7) 10/10/19 13:00 MCHC 32.7 g/dl (32.0-35.9) 10/10/19 13:00 RDW 13.6 % (11.9-15.9) 10/10/19 13:00 Plt Count 172 K/MM3 (134-434) 10/10/19 13:00 MPV 9.3 fl (7.5-11.1) 10/10/19 13:00 Absolute Neuts (auto) 6.5 K/mm3 (1.5-8.0) 10/10/19 13:00 Neutrophils % 69.3 % (42.8-82.8) 10/10/19 13:00 Lymphocytes % 20.5 % (8-40) D 10/10/19 13:00 Monocytes % 9.1 % (3.8-10.2) 10/10/19 13:00 Eosinophils % 0.6 % (0-4.5) 10/10/19 13:00 Basophils % 0.5 % (0-2.0) 10/10/19 13:00 Nucleated RBC % 0 % (0-0) 10/10/19 13:00 No leukocytosis. No anemia. Urine Test Results Urine Color Yellow 10/10/19 13:05 Urine Appearance Clear 10/10/19 13:05 Urine pH 5.5 (5.0-8.0) 10/10/19 13:05 Ur Specific [place] 1.030 (1.010-1.035) 10/10/19 13:05 Urine Protein Negative (NEGATIVE) 10/10/19 13:05 Urine Glucose (UA) Negative (NEGATIVE) 10/10/19 13:05 Urine Ketones Trace (NEGATIVE) H 10/10/19 13:05 Urine Blood Negative (NEGATIVE) 10/10/19 13:05 Urine Nitrite Negative (NEGATIVE) 10/10/19 13:05 Urine Bilirubin Negative (NEGATIVE) 10/10/19 13:05 Ur Leukocyte Esterase Negative (NEGATIVE) 10/10/19 13:05 Negative for UTI. Trace ketones. Negative for hematuria. Negative for proteinuria. 10/10/19 14:17 CMP Sodium 129 mmol/L (136-145) L 10/10/19 13:00 Potassium 4.3 mmol/L (3.5-5.1) 10/10/19 13:00 Chloride 94 mmol/L (98-107) L 10/10/19 13:00 Carbon Dioxide 25 mmol/L (21-32) 10/10/19 13:00 Anion Gap 9 MMOL/L (8-16) 10/10/19 13:00 BUN 14.6 mg/dL (7-18) 10/10/19 13:00 Creatinine 0.8 mg/dL (0.55-1.3) 10/10/19 13:00 Est GFR (CKD-EPI)AfAm 101.99 10/10/19 13:00 Est GFR (CKD-EPI)NonAf 88.00 10/10/19 13:00 Random Glucose 127 mg/dL (74-106) H 10/10/19 13:00 Calcium 8.8 mg/dL (8.5-10.1) 10/10/19 13:00 Magnesium 2.1 mg/dL (1.8-2.4) 10/10/19 13:00 Total Bilirubin 0.5 mg/dL (0.2-1) 10/10/19 13:00 AST 29 U/L (15-37) 10/10/19 13:00 ALT 45 U/L (13-61) 10/10/19 13:00 Alkaline Phosphatase 68 U/L (45-117) 10/10/19 13:00 Creatine Kinase 232 U/L (26-308) 10/10/19 13:00 Troponin I < 0.02 ng/ml (0.00-0.05) 10/10/19 13:00 B-Natriuretic Peptide 280.2 pg/ml (5-125) H 10/10/19 13:00 Total Protein 7.1 g/dl (6.4-8.2) 10/10/19 13:00 Albumin 4.4 g/dl (3.4-5.0) 10/10/19 13:00 Mild hyponatremia. -Medications ordered: normal saline bolus 1000 cc once -Pt reported no decreased PO intake 10/10/19 16:13 Pt reported chest pressure resolved. Requesting discharge. Pending repeat Troponin and sodium. Pt requesting food. 10/10/19 16:50 Repeat troponin undetectable. Repeat sodium 133. Pt discharged. Pt informed of results and given copies of lab work. Discharge - Discharge Information Problems reviewed: Yes Clinical Impression/Diagnosis: Dysuria, Chest pressure, Hyponatremia Condition: Stable Disposition: HOME - Admission No - Follow up/Referral Referrals: Gurpreet Banks MD [Primary Care Provider] - Madhav Haley MD [Staff Physician] - - Patient Discharge Instructions Patient Printed Discharge Instructions: DI for Transurethral Resection of the Prostate, DI for Hyponatremia Additional Instructions: Your lab work showed you have low sodium, but was otherwise normal. Your ultrasound of the bladder showed it was empty after you urinated, so you are able to empty your bladder. Your urine analysis was negative for infection, continue taking the antibiotic you were prescribed by Dr. Haley. Your ultrasound of your kidneys showed there is no fluid backing up, indicating you are able to empty your bladder. Your EKG was similar to prior. Your cardiac blood testing was negative. Your Chest X-ray showed no pneumonia. Follow up with Dr. Haley within 5 days regarding your Emergency Room visit. Follow up with your primary care doctor within 3 days regarding your Emergency Room visit. Return to the Emergency Department for increasing pain, fever, vomiting, inability to urinate, increasing abdominal distension, lightheadedness, chest pain, passing out, lightheadedness, shortness of breath, or any other new, worsening or concerning symptoms. KAZAKH TRANSLATION PROVIDED VIA [employer] TRANSLATE Thomas trabajo de laboratorio mostr que tiene bajo contenido de sodio, joceline por lo dems era normal. Thomas ultrasonido de la vejiga mostr que estaba vaco despus de orinar, por lo que puede vaciar la vejiga. Thomas anlisis de orina fue negativo para infeccin, contine tomando el antibitico que le recet el Dr. Haley. Thomas ultrasonido de lizy riones mostr que no hay lquido retrocediendo, lo que indica que puede vaciar thomas vejiga. Thomas electrocardiograma fue similar al anterior. Thomas anlisis de medhat cardaca fue negativo. Thomas radiografa de trax no mostr neumona. Fazal un seguimiento con el Dr. Haley dentro de los 5 [place] con respecto a thomas visita a la catalina de emergencias. Fazal un seguimiento con el tu doctor primario dentro de los 3 [place] con respecto a thomas visita a la catalina de emergencias. Regrese al departamento de emergencias para aumentar el dolor, fiebre, vmitos, incapacidad para orinar, aumento de la distensin abdominal, aturdimiento, dolor en el pecho, desmayo, aturdimiento, falta de aliento o cualquier otro sntoma nuevo, que empeora o preocupa. Print Language: KAZAKH - Post Discharge Activity
--- NOTE | 2019-10-10 13:21 | PDOC ---
Attending Attestation - Resident Resident Name: Segun,Cathy - ED Attending Attestation I have performed the following: I have examined & evaluated the patient, The case was reviewed & discussed with the resident, I agree w/resident's findings & plan - HPI HPI: 10/10/19 16:42 74 year old male with PMH anxiety, depression, HTN, HLD, CHF, BPH, lung cancer ( s/p Right Upper Lobectomy x13 months ago, no chemo, no radiation) presented to ED for chest "pressure" and difficulty urinating since yesterday. Pt reported he was seen by his urologist Dr. Haley yesterday, mentioned he had some pain with urination, and was placed on Bactrim. Pt has plan for TUVP and brought his informational sheet, and is requesting his pre-op labs be drawn today, even though his surgery is >10 days. He reported this pressure in his chest is intermittent, radiates up his throat, no aggravating or alleviating factors, no association with food, no association with deep inspiration. He denied chest "pain" and reported he is not worried about his heart. He denied cough, fever, vomiting, diarrhea, hematuria, shortness of breath. - Physicial Exam PE: 10/10/19 16:43 Agree with the resident's HPI and PE as documented in the electronic medical record. NAD, well appearing, EOMI, PERRL, nl conjunctiva, anicteric; neck supple. lungs clear, RRR, abdomen soft nontender. no rebound, guarding. Back nontender. DIAMOND x4, no focal neuro deficits. No peripheral edema. normal color for ethnicity , WWP. - Medical Decision Making 10/10/19 16:43 Vital Signs Temp Pulse Resp BP Pulse Ox 98.8 F 69 16 134/71 98 10/10/19 12:25 10/10/19 12:35 10/10/19 12:25 10/10/19 12:25 10/10/19 12:35 labs wnl, trop neg, EKG unchanged, normal sinus rhythm intermittent PVCS lytes normal, borderline N1 129, given NSS and recheck bnp unremarkable, doubt cardiomyopathy/CHF bladder scan with empty bladder after voiding. no e/o retention repeat trop remains neg, less likely ACS or cardiac. has uro followup. pt is asymptomatic, VS remain well. Pt to be discharged in stable condition. Patient made aware of clinical impression, treatment recommendations and disposition plan, return precautions discussed (including but not limited to new or persistent/worsening symptoms, pain, fevers, or signs of infection, chest pain, respiratory distress, inability to tolerate oral intake, dehydration, syncope, or neurologic changes) . Follow up with PMD and/or specialist as recommended, follow up information provided, take medications as instructed for duration of time. continue with supportive care, avoid triggers and precipitants. All questions answered to patient's satisfaction and expressed understanding and comfort with this. At the time of discharge, the patient is alert, clinically improved, tolerating po and verbalizes understanding of instructions, satisfied with the care received and felt comfortable with the plan. Patient does not suffer from an acute life- threatening medical condition at this time and is safe for outpatient follow- up. 10/10/19 16:57 Heart Score/ECG Review #1 ECG reviewed & interpreted by me at: 12:30 General ECG Interpretation: Sinus Rhythm, Normal Rate Compared to previous ECG there are: No significant change 10/10/19 13:23 LBBB, wide QRS, intermittent PVC, nonspecific T wave abnormalities, similar to prior.
[2019-10-10 13:37] LABS: BASO % 0.5 % (0-2.0); EOS % 0.6 % (0-4.5); HEMATOCRIT 47.7 % (35.4-49); HEMOGLOBIN 15.6 GM/dL (11.7-16.9); LYMPH % 20.5 % (8-40); MCH 28.4 pg (25.7-33.7); MCHC 32.7 g/dl (32.0-35.9); MEAN CELL VOLUME 86.8 fl (80-96); MEAN PLT VOLUME 9.3 fl (7.5-11.1); MONO % 9.1 % (3.8-10.2); NEUT % 69.3 % (42.8-82.8); PLATELET COUNT 172 K/MM3 (134-434); RBC 5.49 M/mm3 (4.00-5.60); RDW 13.6 % (11.9-15.9); WHITE BLOOD COUNT 9.4 K/mm3 (4.0-10.0)
[2019-10-10 13:43] LABS: PH,URINE 5.5 (5.0-8.0); URINE APPEARANCE CLEAR; URINE BILIRUBIN NEGATIVE (NEGATIVE); URINE COLOR YELLOW; URINE GLUCOSE (UA) NEGATIVE (NEGATIVE); URINE KETONE TRACE (NEGATIVE); URINE LEUK ESTERASE NEGATIVE (NEGATIVE); URINE NITRITE NEGATIVE (NEGATIVE); URINE PROTEIN NEGATIVE (NEGATIVE)
[2019-10-10 14:07] LABS: ALBUMIN 4.4 g/dl (3.4-5.0); ALK PHOS 68 U/L (45-117); ANION GAP 9 MMOL/L (8-16); BILIRUBIN,TOTAL 0.5 mg/dL (0.2-1); BLOOD UREA NITROGEN 14.6 mg/dL (7-18); CALCIUM 8.8 mg/dL (8.5-10.1); CHLORIDE 94 mmol/L (98-107); CO2 25 mmol/L (21-32); CREATININE 0.8 mg/dL (0.55-1.3); GLUCOSE,RANDOM 127 mg/dL (74-106); MAGNESIUM 2.1 mg/dL (1.8-2.4); N-TERMINAL BNP 280.2 pg/ml (5-125); POTASSIUM 4.3 mmol/L (3.5-5.1); SGOT/AST 29 U/L (15-37); SGPT/ALT 45 U/L (13-61); SODIUM 129 mmol/L (136-145); TOT PROT 7.1 g/dl (6.4-8.2)
[2019-10-10 14:14] LABS: INR 1.16 (0.83-1.09); PROTHROMBIN TIME (PATIENT) 13.7 SEC (9.7-13.0)
[2019-10-10 14:16] LABS: ACTIVATED PTT 30.4 SECONDS (25.2-36.5)
[2019-10-10] MEDS ORDERED: SODIUM CHLORIDE 1,000 ML IV STA (14:20)
[2019-10-10 16:48] LABS: SODIUM 133 mmol/L (136-145)
--- NOTE | 2019-10-11 10:53 | EKG ---
Test Reason : Blood Pressure : / mmHG Vent. Rate : 086 BPM Atrial Rate : 086 BPM P-R Int : 156 ms QRS Dur : 128 ms QT Int : 390 ms P-R-T Axes : 061 016 158 degrees QTc Int : 466 ms POOR DATA QUALITY, INTERPRETATION MAY BE ADVERSELY AFFECTED SINUS RHYTHM WITH FREQUENT and consecutive PREMATURE VENTRICULAR COMPLEXES LEFT BUNDLE BRANCH BLOCK ABNORMAL ECG WHEN COMPARED WITH ECG OF 05-APR-2019 08:07, NO SIGNIFICANT CHANGE WAS FOUND Confirmed by WENDI PANDEY MD ([id number]) on 10/11/2019 10:53:06 AM Referred By: Confirmed By:WENDI PANDEY MD
== END 2019-10-10 16:45 | disposition home or self-care (01) ==
LOC: JER 12:22
PROC: 3E0337Z Introduction of Electrolytic and Water Balance Substance into Peripheral Vein, Percutaneous Approach (ICD-10-PCS; principal; 2019-10-10)
DX: R07.9 Chest pain, unspecified (principal); R30.0 Dysuria; E87.1 Hypo-osmolality and hyponatremia; I11.0 Hypertensive heart disease with heart failure; I50.9 Heart failure, unspecified; N40.0 Benign prostatic hyperplasia without lower urinary tract symptoms; E78.5 Hyperlipidemia, unspecified; F41.9 Anxiety disorder, unspecified; F32.9 Major depressive disorder, single episode, unspecified; Z85.118 Personal history of other malignant neoplasm of bronchus and lung; Z90.2 Acquired absence of lung [part of]; Z90.49 Acquired absence of other specified parts of digestive tract
CPT/HCPCS: 36415; 71046-TC-FY; 80053; 81003; 82550; 82553; 83735; 83880; 84295; 84484; 85025; 85610; 85730; 87086; 93005; 93010; 96360; 99283-25; J7030

== ENCOUNTER 2019-11-09 18:24 | Emergency (ER) | payer OTHER ==
[2019-11-09 19:06] VITALS: BP 136/75; PULSE 74; TEMP 99; BMI 24.0
--- NOTE | 2019-11-09 19:11 | PDOC ---
Rapid Medical Evaluation Chief Complaint: Cold Symptoms Time Seen by Provider: 11/09/19 19:03 Medical Evaluation: Allergies Allergy/AdvReac Type Severity Reaction Status Date / Time No Known Allergies Allergy Verified 11/09/19 19:06 Vital Signs Temp Pulse Resp BP Pulse Ox 99.0 F 74 20 136/75 98 11/09/19 19:03 11/09/19 19:03 11/09/19 19:03 11/09/19 19:03 11/09/19 19:03 11/09/19 19:09 The patient presents for 2 days of fever. 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 C/o cough, fever, chills, body aches Exam: dry cough. Lungs CTAB Orders: flu Pt to proceed to the ER for further evaluation Discharge Disposition - Diagnosis Cough - Referrals - Patient Instructions - Post Discharge Activity
--- NOTE | 2019-11-09 21:19 | PDOC ---
History of Present Illness - General Chief Complaint: Cold Symptoms Stated Complaint: HEADACHE & FEVER Time Seen by Provider: 11/09/19 19:03 - History of Present Illness Initial Comments: 11/09/19 21:17 74-year-old male past medical history of hypertension presents for evaluation of flulike symptoms and sinus congestion x3 days with systemic symptoms of fever chills and night sweats Past History - Past Medical History Allergies/Adverse Reactions: Allergies Allergy/AdvReac Type Severity Reaction Status Date / Time No Known Allergies Allergy Verified 11/09/19 19:06 Home Medications: Ambulatory Orders Carvedilol [Coreg -] 25 mg PO BID 10/18/16 Losartan Potassium [Cozaar] 25 mg PO BID 10/18/16 Aspirin [ASA -] 81 mg PO DAILY 02/10/17 Tamsulosin HCl [Flomax] 0.4 mg PO DAILY 02/10/17 Atorvastatin Calcium [Lipitor] 10 mg PO DAILY 05/28/18 Guaifenesin AC [Robitussin AC -] 5 ml PO TID PRN #1 bottle MDD 15ml 07/24/18 Ciprofloxacin HCl [Cipro] 500 mg PO BID 10 Days #20 tablet 10/27/18 Metronidazole [Flagyl] 500 mg PO Q8H 10 Days #30 capsule 10/27/18 Amox-Tr/K Cl [Augmentin - 875Mg Tablet] 1 tab PO BID #20 tablet 11/09/19 Budesonide [Rhinocort Allergy] 1 spray NS ONCE #1 spray.pump 11/09/19 Cancer: Yes (lung) Cardiac Disorders: Yes CVA: No COPD: No DVT: No Diabetes: Yes HTN: Yes Hypercholesterolemia: Yes Seizures: Yes Lung CA: Yes (S/P RUL Lobectomy) - Surgical History Abdominal Surgery: Yes Cholecystectomy: Yes Lung Surgery: Yes - Immunization History Immunization Up to Date: Yes - Psycho Social/Smoking Cessation Hx Smoking History: Never smoked Have you smoked in the past 12 months: No Number of Cigarettes Smoked Daily: 0 Information on smoking cessation initiated: No Hx Alcohol Use: No Drug/Substance Use Hx: No Substance Use Type: None Review of Systems - Review of Systems Constitutional: Yes: Chills, Fever, Malaise, Night Sweats HEENTM: Yes: Nose Congestion *Physical Exam - Vital Signs Last Vital Signs Temp Pulse Resp BP Pulse Ox 99.0 F 74 20 136/75 98 11/09/19 19:03 11/09/19 19:03 11/09/19 19:03 11/09/19 19:03 11/09/19 19:03 - Physical Exam 11/09/19 21:17 GENERAL: The patient is awake, alert, and fully oriented, in no acute distress. HEAD: Normal with no signs of trauma. EYES: sclera anicteric, conjunctiva clear. ENT: Ears normal tympanic membranes normal oropharynx clear uvula midline tender sinuses frontal and maxillary with injected turbinates NECK: Normal range of motion LUNGS: Breath sounds equal, clear to auscultation bilaterally. No wheezes, and no crackles. HEART: S1 and S2 without murmur, rub or gallop. ABDOMEN: Soft, nontender, normoactive bowel sounds. No guarding, no rebound. No masses. EXTREMITIES: Normal range of motion, no edema. No clubbing or cyanosis. No cords, erythema, or tenderness. NEUROLOGICAL: Cranial nerves II through XII grossly intact. Normal speech, normal gait. PSYCH: Normal mood, normal affect. SKIN: Warm, Dry, normal turgor, no rashes or lesions noted. Medical Decision Making - Medical Decision Making 11/09/19 21:18 Augmentin and steroidal nasal spray for bacterial sinusitis Discharge - Discharge Information Problems reviewed: Yes Clinical Impression/Diagnosis: Cough, Bacterial sinusitis Condition: Stable Disposition: HOME - Admission No - Additional Discharge Information Prescriptions: Amox-Tr/K Cl [Augmentin - 875Mg Tablet] 1 tab PO BID #20 tablet Budesonide [Rhinocort Allergy] 1 spray NS ONCE #1 spray.pump - Follow up/Referral Referrals: Gurpreet Banks MD [Primary Care Provider] - - Patient Discharge Instructions Patient Printed Discharge Instructions: Sinusitis Additional Instructions: Please take the antibiotics as directed. Use nasal spray as directed. Without fail please follow-up with your primary care physician in 2 to 3 days for further evaluation and treatment options. Return to the emergency room at anytime for worsening symptoms. - Post Discharge Activity
== END 2019-11-09 21:34 | disposition home or self-care (01) ==
LOC: JERFT 18:24
DX: J32.8 Other chronic sinusitis (principal); B96.89 Other specified bacterial agents as the cause of diseases classified elsewhere; R05 Cough; I10 Essential (primary) hypertension; E11.9 Type 2 diabetes mellitus without complications; E78.00 Pure hypercholesterolemia, unspecified; Z85.118 Personal history of other malignant neoplasm of bronchus and lung
CPT/HCPCS: 87804; 99281-25

== ENCOUNTER 2020-06-17 10:08 | Emergency (ER) | payer OTHER ==
[2020-06-17 10:17] VITALS: TEMP 98.2; BMI 25.7
[2020-06-17] MEDS ORDERED: MAG HYDROX/AL HYDROX/SIMETH 30 ML UNIT-DOSE CUP PO ONE (10:38)
[2020-06-17] MEDS ORDERED: FAMOTIDINE 20 MG/50 ML IVPB 20 MG/50 ML MG IVPB ONE ×2 (10:38→11:17)
--- NOTE | 2020-06-17 11:09 | PDOC ---
History of Present Illness - General Chief Complaint: Blood Pressure Problem Stated Complaint: Blood Pressure Problem Time Seen by Provider: 06/17/20 10:17 History Source: Patient Exam Limitations: No Limitations - History of Present Illness Initial Comments: 06/17/20 11:08 75-year-old male history of hypertension, diabetes, lung cancer status post RUL lobectomy 2 years ago, gastritis presents complaining of chest pressure since 7 AM today. states that this sensation is his usual sensation when he has gastritis. Requesting to have his blood pressure checked because he believes this is a result of elevated blood pressure. 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 denies chest pain, shortness of breath, cough, headache, abdominal pain, nausea, vomiting, diarrhea, fever, chills, urinary symptoms. Also states he has been feeling sadness for 2 years after his daughter . Lives alone, denies SI or HI. Denies tobacco or alcohol use. Tolerated full breakfast this morning and took antihypertensives. ROS: GENERAL/CONSTITUTIONAL: No fever, chills, weakness, dizziness HEAD, EYES, EARS, NOSE AND THROAT: No changes in vision, No ear pain or discharge, No sore throat CARDIOVASCULAR: Chest pressure RESPIRATORY: No shortness of breath or cough GASTROINTESTINAL: No pain, nausea, vomiting, diarrhea or constipation GENITOURINARY: No dysuria MUSCULOSKELETAL: No neck or back pain SKIN: No rash NEUROLOGIC: No headache, vertigo, loss of consciousness, or loss of sensation PE: GENERAL: well-appearing, NAD HEAD: NCAT EYES: Pupils equal, round and reactive to light, sclera anicteric, conjunctiva clear ENT: pharynx: no erythema, no exudate, uvula midline NECK: supple CHEST: nontender RESP: clear, no w/r/r CARDIO: rrr, no m/g/r ABD: +BS, soft, nontender, non distended BACK: no midline spinal ttp, no CVAT EXTREMITIES: Normal range of motion, no edema NEUROLOGICAL: Normal speech, normal gait SKIN: Warm, Dry Is this a multiple visit Asthma Patient?: No Past History - Medical History Allergies/Adverse Reactions: Allergies Allergy/AdvReac Type Severity Reaction Status Date / Time No Known Allergies Allergy Verified 06/17/20 10:16 Home Medications: Ambulatory Orders Amox-Tr/K Cl [Augmentin - 875Mg Tablet] 1 tab PO BID #20 tablet 11/09/19 Budesonide [Rhinocort Allergy] 1 spray NS ONCE #1 spray.pump 11/09/19 Cancer: Yes (lung) Cardiac Disorders: Yes CVA: No COPD: No DVT: No Diabetes: Yes HTN: Yes Hypercholesterolemia: Yes Seizures: Yes Lung CA: Yes (S/P RUL Lobectomy) - Surgical History Abdominal Surgery: Yes Cholecystectomy: Yes Lung Surgery: Yes - Immunization History Immunization Up to Date: Yes - Psycho-Social/Smoking History Smoking History: Never smoked Have you smoked in the past 12 months: No Number of Cigarettes Smoked Daily: 0 Information on smoking cessation initiated: No - Substance Abuse Hx (Audit-C & DAST Scrn) How often the patient has a drink containing alcohol: Never Score: In Men: 4 or > Positive; In Women: 3 or > Positive: 0 Screen Result (Pos requires Nsg. Audit-10AR): Negative In the last yr the pt used illegal drug/Rx for NonMed reason: No Score: Yes response is considered Positive: 0 Screen Result (Positive result requires Nsg. DAST-10): Negative *Physical Exam - Vital Signs Last Vital Signs Temp Pulse Resp BP Pulse Ox 98.2 F 81 16 147/89 100 06/17/20 10:12 06/17/20 10:12 06/17/20 10:12 06/17/20 10:12 06/17/20 10:12 ED Treatment Course - LABORATORY CBC & Chemistry Diagram: 06/17/20 11:00 06/17/20 11:00 - RADIOLOGY Radiology Studies Ordered: Category Date Time Status CHEST PA & LAT [RAD] Stat Radiology 06/17/20 10:29 Taken Medical Decision Making - Medical Decision Making 06/17/20 11:18 75-year-old male history of hypertension, diabetes, lung cancer status post RUL lobectomy 2 years ago, gastritis presents complaining of chest pressure since 7 AM today. states that this sensation is his usual sensation when he has gastritis. Requesting to have his blood pressure checked because he believes this is a result of elevated blood pressure. 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 denies chest pain, shortness of breath, cough, headache, abdominal pain, nausea, vomiting, diarrhea, fever, chills, urinary symptoms. Also states he has been feeling sadness for 2 years after his daughter . Lives alone, denies SI or HI. Denies tobacco or alcohol use. Tolerated full breakfast this morning and took antihypertensives. ecg - nsr, hr 75, LBBB (same compared to 10/10/20) Discussed chest x-ray, labs, negative troponin and UA results with patient Patient agrees to follow-up with PMD within 1 week Patient feels better after GI cocktail Stable for discharge Discharge - Discharge Information Problems reviewed: Yes Clinical Impression/Diagnosis: Sensation of chest pressure Condition: Stable Disposition: HOME - Admission No - Follow up/Referral Referrals: Francisco Javier Case MD [Primary Care Provider] - - Patient Discharge Instructions Additional Instructions: Continue to take your medications as directed by your physician Follow-up with your primary care doctor within 1 week Return to the emergency department if any concerning symptoms - Post Discharge Activity
[2020-06-17] MEDS ORDERED: MAG HYDROX/AL HYDROX/SIMETH 30 ML UNIT-DOSE CUP ONE (11:17)
[2020-06-17 11:35] LABS: BASO % 0.6 % (0-2.0); EOS % 4.7 % (0-4.5); HEMOGLOBIN 14.1 GM/dL (11.7-16.9); LYMPH % 27.7 % (8-40); MCH 27.6 pg (25.7-33.7); MCHC 32.1 g/dl (32.0-35.9); MEAN CELL VOLUME 86.1 fl (80-96); PLATELET COUNT 167 K/MM3 (134-434); RBC 5.11 M/mm3 (4.00-5.60); RDW 14.8 % (11.9-15.9); WHITE BLOOD COUNT 7.1 K/mm3 (4.0-10.0)
[2020-06-17 12:05] LABS: ALBUMIN 3.9 g/dl (3.4-5.0); ALK PHOS 70 U/L (45-117); ANION GAP 3 MMOL/L (8-16); BILIRUBIN,TOTAL 0.5 mg/dL (0.2-1); BLOOD UREA NITROGEN 18.8 mg/dL (7-18); CHLORIDE 102 mmol/L (98-107); CO2 32 mmol/L (21-32); CREATININE 0.8 mg/dL (0.55-1.3); GLUCOSE,RANDOM 95 mg/dL (74-106); LIPASE 83 U/L (73-393); POTASSIUM 4.8 mmol/L (3.5-5.1); SGOT/AST 29 U/L (15-37); SGPT/ALT 37 U/L (13-61); SODIUM 137 mmol/L (136-145); TOT PROT 7.1 g/dl (6.4-8.2)
[2020-06-17 12:48] LABS: PH,URINE 7.5 (5.0-8.0); URINE APPEARANCE CLEAR; URINE BILIRUBIN NEGATIVE (NEGATIVE); URINE COLOR YELLOW; URINE GLUCOSE (UA) NEGATIVE (NEGATIVE); URINE KETONE NEGATIVE (NEGATIVE); URINE LEUK ESTERASE NEGATIVE (NEGATIVE); URINE NITRITE NEGATIVE (NEGATIVE); URINE PROTEIN NEGATIVE (NEGATIVE); URINE UROBILINOGEN 0.2 mg/dL (0.2-1.0)
[2020-06-17 13:15] VITALS: BP 137/84; PULSE 78
--- NOTE | 2020-06-18 15:06 | EKG ---
Test Reason : Blood Pressure : / mmHG Vent. Rate : 075 BPM Atrial Rate : 075 BPM P-R Int : 154 ms QRS Dur : 132 ms QT Int : 418 ms P-R-T Axes : 062 005 164 degrees QTc Int : 466 ms NORMAL SINUS RHYTHM LEFT BUNDLE BRANCH BLOCK ABNORMAL ECG WHEN COMPARED WITH ECG OF 10-OCT-2019 12:28, PREMATURE VENTRICULAR COMPLEXES ARE NO LONGER PRESENT Confirmed by DEE MOLINA MD ([id number]) on 06/18/2020 3:06:50 PM Referred By: Confirmed By:DEE MOLINA MD
== END 2020-06-17 13:10 | disposition home or self-care (01) ==
LOC: JER 10:08
PROC: 3E033GC Introduction of Other Therapeutic Substance into Peripheral Vein, Percutaneous Approach (ICD-10-PCS; principal; 2020-06-17)
DX: R07.89 Other chest pain (principal)
CPT/HCPCS: 36415; 71046-TC-FY; 80053; 81003; 83690; 84484; 85025; 93005; 93010; 99285-25

== ENCOUNTER 2021-04-29 08:50 | Emergency (ER) | payer OTHER ==
[2021-04-29 08:54] VITALS: BMI 25.0
[2021-04-29 09:03] VITALS: TEMP 97.3
[2021-04-29] MEDS ORDERED: FAMOTIDINE 20 MG TABLET PO ONE (09:20)
[2021-04-29] MEDS ORDERED: ACETAMINOPHEN 500 MG TABLET (FP) PO ONE (09:20)
[2021-04-29] MEDS ORDERED: MAG HYDROX/AL HYDROX/SIMETH 30 ML UNIT-DOSE CUP PO ONE (09:20)
[2021-04-29] MEDS ORDERED: MAG HYDROX/AL HYDROX/SIMETH 30 ML UNIT-DOSE CUP ONE (10:03)
[2021-04-29] MEDS ORDERED: FAMOTIDINE 20 MG TABLET ONE ×2 (10:03→10:05)
[2021-04-29] MEDS ORDERED: ACETAMINOPHEN 325 MG TABLET (FP) ONE (10:03)
[2021-04-29 10:05] LABS: BASO % 0.6 % (0-2.0); EOS % 1.3 % (0-4.5); HEMATOCRIT 44.7 % (35.4-49); LYMPH % 26.6 % (8-40); MCH 28.8 pg (25.7-33.7); MCHC 33.6 g/dl (32.0-35.9); MEAN CELL VOLUME 85.7 fl (80-96); MEAN PLT VOLUME 8.5 fl (7.5-11.1); MONO % 11.6 % (3.8-10.2); NEUT % 59.9 % (42.8-82.8); PLATELET COUNT 161 K/MM3 (134-434); RBC 5.21 M/mm3 (4.00-5.60); RDW 14.1 % (11.9-15.9); WHITE BLOOD COUNT 6.6 K/mm3 (4.0-10.0)
[2021-04-29 10:19] LABS: INR 1.04 (0.83-1.09); PROTHROMBIN TIME (PATIENT) 12.6 SEC (9.7-13.0)
[2021-04-29 10:21] LABS: CHLORIDE 103 mmol/L (98-107); SODIUM 140 mmol/L (136-145)
[2021-04-29 10:22] LABS: ACTIVATED PTT 29.8 SECONDS (25.2-36.5)
[2021-04-29 10:23] LABS: ANION GAP 4 MMOL/L (8-16); BLOOD UREA NITROGEN 10.6 mg/dL (7-18); CALCIUM 8.8 mg/dL (8.5-10.1); CO2 32 mmol/L (21-32); GLUCOSE,RANDOM 98 mg/dL (74-106)
[2021-04-29 10:26] LABS: CREATININE 0.6 mg/dL (0.55-1.3); SGPT/ALT 35 U/L (13-61)
[2021-04-29 10:27] LABS: SGOT/AST 16 U/L (15-37)
[2021-04-29 10:28] LABS: BILIRUBIN,TOTAL 0.5 mg/dL (0.2-1); TOT PROT 7.1 g/dl (6.4-8.2)
[2021-04-29 10:29] LABS: ALK PHOS 76 U/L (45-117)
[2021-04-29 11:51] VITALS: BP 140/79; PULSE 65
== END 2021-04-29 13:37 | disposition home or self-care (01) ==
LOC: SUPCPDRO 08:50 → JER 08:50
DX: R07.9 Chest pain, unspecified (principal); I49.3 Ventricular premature depolarization; I44.7 Left bundle-branch block, unspecified
CPT/HCPCS: 36415; 71045-TC-FY; 80053; 84484; 85025; 85610; 85730; 93005; 93010; 99285-25

== ENCOUNTER 2021-09-29 09:16 | Emergency (ER) | payer OTHER ==
[2021-09-29 09:26] VITALS: BP 140/75; PULSE 78; TEMP 98.1; BMI 25.0
[2021-09-29 11:20] LABS: URINE APPEARANCE CLEAR; URINE BILIRUBIN NEGATIVE (NEGATIVE); URINE COLOR YELLOW; URINE GLUCOSE (UA) NEGATIVE (NEGATIVE); URINE KETONE NEGATIVE (NEGATIVE)
[2021-09-29 11:21] LABS: PH,URINE 5.5 (5.0-8.0); URINE NITRITE NEGATIVE (NEGATIVE); URINE PROTEIN NEGATIVE (NEGATIVE); URINE UROBILINOGEN 0.2 mg/dL (0.2-1.0)
[2021-09-29 11:22] LABS: URINE LEUK ESTERASE NEGATIVE (NEGATIVE)
== END 2021-09-29 12:14 | disposition home or self-care (01) ==
LOC: JER 09:16
DX: R30.0 Dysuria (principal)
CPT/HCPCS: 81003; 87086; 99283-25

== ENCOUNTER 2023-07-04 13:44 | Emergency (ER) | payer OTHER ==
[2023-07-04 13:53] VITALS: BP 153/67; PULSE 58; RESP 10; TEMP 98.2; BMI 25.2
[2023-07-04] MEDS ORDERED: SODIUM CHLORIDE 1,000 ML IV STA (15:17)
[2023-07-04] MEDS ORDERED: FAMOTIDINE 20 MG/50 ML IVPB 20 MG/50 ML MG IVPB ONE ×2 (15:17→15:45)
[2023-07-04] MEDS ORDERED: ACETAMINOPHEN 1000 MG/100 ML BAG IVPB ONE (15:17)
[2023-07-04] MEDS ORDERED: MAG HYDROX/AL HYDROX/SIMETH 30 ML UNIT-DOSE CUP PO ONE (15:17)
[2023-07-04] MEDS ORDERED: MAG HYDROX/AL HYDROX/SIMETH 30 ML UNIT-DOSE CUP ONE (15:45)
[2023-07-04] MEDS ORDERED: ACETAMINOPHEN INJECTION 100 ML IVPB ONE (15:46)
[2023-07-04 16:43] LABS: BASO % 0.5 % (0-2.0); EOS % 1.1 % (0-4.5); HEMATOCRIT 43.8 % (35.4-49); HEMOGLOBIN 14.6 GM/dL (11.7-16.9); LYMPH % 33.1 % (8-40); MCH 28.2 pg (25.7-33.7); MCHC 33.4 g/dl (32.0-35.9); MEAN CELL VOLUME 84.6 fl (80-96); MEAN PLT VOLUME 9.1 fl (7.5-11.1); MONO % 10.3 % (3.8-10.2); PLATELET COUNT 147 10^3/uL (134-434); RBC 5.17 M/mm3 (4.00-5.60); RDW 15.6 % (11.9-15.9); WHITE BLOOD COUNT 6.6 K/mm3 (4.0-10.0)
[2023-07-04 16:55] LABS: PH,URINE 5.5 (5.0-8.0); URINE APPEARANCE CLEAR; URINE BILIRUBIN NEGATIVE (NEGATIVE); URINE COLOR YELLOW; URINE GLUCOSE (UA) NEGATIVE (NEGATIVE); URINE KETONE NEGATIVE (NEGATIVE); URINE LEUK ESTERASE NEGATIVE (NEGATIVE); URINE NITRITE NEGATIVE (NEGATIVE); URINE PROTEIN NEGATIVE (NEGATIVE); URINE UROBILINOGEN 0.2 mg/dL (0.2-1.0)
[2023-07-04 17:05] LABS: ALBUMIN 4.2 g/dl (3.4-5.0); BLOOD UREA NITROGEN 15.4 mg/dL (7-18); CALCIUM 9.5 mg/dL (8.5-10.1)
[2023-07-04 17:08] LABS: CREATININE 0.9 mg/dL (0.55-1.3)
[2023-07-04 17:09] LABS: TOT PROT 7.4 g/dl (6.4-8.2)
[2023-07-04 17:10] LABS: BILIRUBIN,TOTAL 0.4 mg/dL (0.2-1)
[2023-07-04 17:56] LABS: HIV INTERPRETATION NEGATIVE (NEGATIVE)
== END 2023-07-04 18:16 | disposition home or self-care (01) ==
LOC: JER 13:44
PROC: 3E033GC Introduction of Other Therapeutic Substance into Peripheral Vein, Percutaneous Approach (ICD-10-PCS; principal; 2023-07-04)
PROC: 3E033NZ Introduction of Analgesics, Hypnotics, Sedatives into Peripheral Vein, Percutaneous Approach (ICD-10-PCS; 2023-07-04)
DX: K29.70 Gastritis, unspecified, without bleeding (principal); R10.13 Epigastric pain; R30.0 Dysuria; R63.0 Anorexia; R14.0 Abdominal distension (gaseous); N48.89 Other specified disorders of penis
CPT/HCPCS: 36415; 71046-TC-FY; 80053; 81003; 83690; 84484; 85025; 86780; 87086; 87389; 87491; 87591; 87661; 93005; 93010; 96365; 96375; 99285-25

== ENCOUNTER 2023-08-29 15:33 | Emergency (ER) | payer OTHER ==
[2023-08-29 15:42] VITALS: BP 174/73; PULSE 72; RESP 16; TEMP 98.1; BMI 24.3
[2023-08-29] MEDS ORDERED: predniSONE 20 MG TABLET (UD) PO ONE (16:25)
[2023-08-29] MEDS ORDERED: predniSONE 20 MG TABLET (UD) ONE (16:38)
[2023-08-29] MEDS ORDERED: LIDOCAINE 5% TOPICAL PATCH TP ONE (16:41)
[2023-08-29] MEDS ORDERED: LIDOCAINE 5% TOPICAL PATCH ONE (16:47)
[2023-08-29] MEDS ORDERED: LIDOCAINE PATCH REMOVAL MC SCH (22:00)
== END 2023-08-29 17:27 | disposition home or self-care (01) ==
LOC: JERFT 15:33
DX: M79.605 Pain in left leg (principal); M54.42 Lumbago with sciatica, left side
CPT/HCPCS: 99283-25

== ENCOUNTER 2024-02-15 11:21 | Emergency (ER) | payer OTHER ==
[2024-02-15 11:34] VITALS: RESP 18; TEMP 98; BMI 22.9
[2024-02-15] MEDS ORDERED: POLYETHYLENE GLYCOL (HEALTHYLAX) 3350 17 GM PACKET ONE (12:11)
[2024-02-15] MEDS: POLYETHYLENE GLYCOL (HEALTHYLAX) 3350 17 GM PACKET PO ONE (12:23)
[2024-02-15] MEDS ORDERED: DICYCLOMINE HCL 10 MG CAPSULE ONE (12:47)
[2024-02-15] MEDS ORDERED: MAG HYDROX/AL HYDROX/SIMETH 30 ML UNIT-DOSE CUP ONE (12:47)
[2024-02-15] MEDS: MAG HYDROX/AL HYDROX/SIMETH 30 ML UNIT-DOSE CUP PO ONE (12:50)
[2024-02-15] MEDS: DICYCLOMINE HCL 20 MG TABLET PO ONE (12:50)
[2024-02-15 14:07] VITALS: BP 131/68; PULSE 72
== END 2024-02-15 14:07 | disposition home or self-care (01) ==
LOC: JER 11:21
DX: K59.00 Constipation, unspecified (principal)
CPT/HCPCS: 74019-TC-FY; 99283-25